=== PATIENT | male | born 1945 | race Two or more races ===

== ENCOUNTER → 2025-01-27 | Outpatient (CLI) | payer OTHER, SELFPAY ==
[2025-01-27 10:17] LABS: Basophils # (Auto) 0.1 Thou/mm3 (0.0-0.2); Basophils % (Auto) 1 % (0-2.5); Eosinophils # (Auto) 0.4 Thou/mm3 (0.0-0.5); Eosinophils % (Auto) 5 % (0-10); Hematocrit 44.9 % (41.0-53.0); Immature Granulocytes % (Auto) 0 % (0-0); Immature Granulocytes Auto 0.02 Thou/mm3 (0.00-0.00); Lymphocytes % (Auto) 27 % (10-50); Mean Corpuscular HGB Conc 33.4 g/dl (31.0-37.0); Mean Corpuscular Hemoglobin 31.2 pg (25.0-35.0); Mean Corpuscular Volume 93 fL (80-100); Monocytes # (Auto) 0.8 Thou/mm3 (0.0-0.8); Monocytes % (Auto) 10 % (0-12); Neutrophils # (Auto) 4.2 Thou/mm3 (1.8-7.7); Neutrophils % (Auto) 57 % (37-80); Nucleated Red Blood Cell % 0 /100 WBC (0); Platelet Count 220 Thou/mm3 (140-440); RDW Standard Deviation 46.8 fL (35.1-43.9); Red Blood Count 4.81 Miln/mm3 (4.50-5.90); White Blood Count 7.4 Thou/mm3 (3.8-10.6)
[2025-01-27 10:46] LABS: Alanine Aminotransferase 17 U/L (10-49); Albumin, Serum 4.2 gm/dL (3.4-4.8); Albumin/Globulin Ratio 1.8 (1.2-2.2); Alkaline Phosphatase 90 U/L (46-116); Anion Gap 6 (7-16); Aspartate Amino Transferase 16 U/L (0-34); BUN/Creatinine Ratio 17 Ratio (12-20); Bilirubin,Total 0.4 mg/dL (0.3-1.2); Blood Urea Nitrogen 17 mg/dL (9-23); Calcium 9.1 mg/dL (8.3-10.6); Calcium (Corrected) 9.1 mg/dL (8.5-10.1); Carbon Dioxide 26.6 mMol/L (20.0-31.0); Cardiac Risk Estimate 3.9 RATIO (4.0-6.7); Chloride 108 mMol/L (98-107); Cholesterol 164 mg/dL (132-200); Globulin 2.4 gm/dL (2.3-3.5); Glucose 106 mg/dL (74-106); HDL Cholesterol 42 mg/dL (40-60); LDL Cholesterol,Calculated 103 mg/dL (0-130); Osmolality,Calculated 282 (275-295); Potassium 4.3 mMol/L (3.4-5.1); Sodium 141 mMol/L (136-145); Thyroid Stimulating Hormone 1.86 uIU/mL (0.55-4.78); Total Protein 6.6 gm/dL (5.7-8.2); Triglycerides 96 mg/dL (30-150); eGFR > 60 See Note
[2025-01-27 11:13] LABS: Glucose Estimated Average 117 mg/dL (80-131); Hemoglobin A1C 5.7 % Hgb (4.8-6.0)
== END | disposition home or self-care (01) ==
LOC: COPL 09:09
PROVIDERS: PCP Family Medicine; Referring Provider Nurse Practitioner Family; Visit Provider Nurse Practitioner Family
DX: I10 Essential (primary) hypertension (principal); Z82.49 Family history of ischemic heart disease and other diseases of the circulatory system; Z86.39 Personal history of other endocrine, nutritional and metabolic disease
CPT/HCPCS: 36415; 80053; 80061; 83036; 84443; 85025

== ENCOUNTER 2025-02-27 19:40 | Emergency (ER) | payer OTHER, SELFPAY | END 2025-02-28 08:00 | disposition left against medical advice (07) | LOC: SERX 20:21 | PROVIDERS: Emergency Provider Emergency Medicine | DX: Z53.21 Procedure and treatment not carried out due to patient leaving prior to being seen by health care provider (principal) ==

== ENCOUNTER → 2025-03-11 | Outpatient (CLI) | payer OTHER, SELFPAY ==
--- NOTE | 2025-03-11 15:30 | XR_ITS ---
Examination: Carotid arterial duplex scan, ultrasound. Date and time of exam: March 11, 2025 1535 hours INDICATIONS: Severe dizziness episodes beginning one week ago Technique: Multiple sonographic images have been obtained of the carotid arteries and vertebral arteries, B-mode/grayscale imaging and Doppler spectral analysis and color flow Peak systolic and diastolic velocities have been recorded. Systolic diastolic ratios have been calculated. Findings: Right peak systolic velocities: Distal internal carotid artery peak systolic velocity is 0.9 M/sec Proximal internal carotid artery peak systolic velocity is 0.3 M/sec Carotid bifurcation peak systolic velocity is 0.8 M/sec External carotid artery peak systolic velocity is 0.5 M/sec Vertebral artery flow is antegrade. Left peak systolic velocities: Distal internal carotid artery peak systolic velocity is 0.9 M/sec Proximal internal carotid artery peak systolic velocity is 0.8 M/sec Carotid bifurcation peak systolic velocity is 0.8 M/sec External carotid artery peak systolic velocity is 1.1 M/sec Vertebral artery flow is antegrade Doppler waveform analysis demonstrates no spectral broadening Impression: Right internal carotid artery demonstrates 0-10% stenosis. Left internal carotid artery demonstrates 0-10% stenosis. Consider brain MRI MRA without contrast follow-up
== END | disposition home or self-care (01) ==
PROVIDERS: Referring Provider Internal Medicine; Visit Provider Internal Medicine
DX: R42 Dizziness and giddiness (principal)
CPT/HCPCS: 93880

== ENCOUNTER → 2025-04-30 | Outpatient (CLI) | payer OTHER, SELFPAY ==
[2025-04-30 09:21] LABS: Basophils % (Auto) 0 % (0-2.5); Eosinophils # (Auto) 0.2 Thou/mm3 (0.0-0.5); Eosinophils % (Auto) 2 % (0-10); Hematocrit 44.7 % (41.0-53.0); Hemoglobin 14.9 g/dL (13.5-16.0); Immature Granulocytes % (Auto) 0 % (0-0); Immature Granulocytes Auto 0.04 Thou/mm3 (0.00-0.00); Lymphocytes # (Auto) 1.7 Thou/mm3 (1.0-4.8); Lymphocytes % (Auto) 18 % (10-50); Mean Corpuscular HGB Conc 33.3 g/dl (31.0-37.0); Mean Corpuscular Hemoglobin 31.3 pg (25.0-35.0); Mean Corpuscular Volume 94 fL (80-100); Monocytes # (Auto) 0.7 Thou/mm3 (0.0-0.8); Monocytes % (Auto) 7 % (0-12); Neutrophils # (Auto) 6.9 Thou/mm3 (1.8-7.7); Neutrophils % (Auto) 72 % (37-80); Nucleated Red Blood Cell % 0 /100 WBC (0); Platelet Count 237 Thou/mm3 (140-440); RDW Standard Deviation 44.7 fL (35.1-43.9); Red Blood Count 4.76 Miln/mm3 (4.50-5.90); White Blood Count 9.7 Thou/mm3 (3.8-10.6)
[2025-04-30 09:43] LABS: Alanine Aminotransferase 13 U/L (10-49); Albumin, Serum 4.3 gm/dL (3.4-4.8); Alkaline Phosphatase 94 U/L (46-116); Anion Gap 3 (7-16); Aspartate Amino Transferase 16 U/L (0-34); BUN/Creatinine Ratio 12 Ratio (12-20); Bilirubin,Total 0.3 mg/dL (0.3-1.2); Blood Urea Nitrogen 14 mg/dL (9-23); Calcium 9.3 mg/dL (8.3-10.6); Calcium (Corrected) 9.3 mg/dL (8.5-10.1); Carbon Dioxide 28.7 mMol/L (20.0-31.0); Chloride 108 mMol/L (98-107); Creatinine (Component) 1.2 mg/dL (0.6-1.3); Globulin 2.2 gm/dL (2.3-3.5); Glucose 105 mg/dL (74-106); Osmolality,Calculated 279 (275-295); Potassium 5.3 mMol/L (3.4-5.1); Sodium 140 mMol/L (136-145); Total Protein 6.5 gm/dL (5.7-8.2); eGFR > 60 See Note
[2025-04-30 14:18] LABS: OBS Performed By LAB; OBS QC OK? Yes
[2025-04-30 18:52] LABS: OBS Developer Lot # 1-24-551749; Occult Blood, Stool Positive (Negative)
[2025-04-30 18:53] LABS: OBS Developer Expiration Date 123126
== END | disposition home or self-care (01) ==
LOC: COPL 08:46
PROVIDERS: PCP Family Medicine; Referring Provider Student in an Organized Health Care Education/Training Program; Visit Provider Student in an Organized Health Care Education/Training Program
DX: I10 Essential (primary) hypertension (principal); R19.7 Diarrhea, unspecified
CPT/HCPCS: 36415; 80053; 82270; 85025; 87015; 87045; 87046; 87177; 87209; 87899

== ENCOUNTER → 2025-05-12 | Outpatient (CLI) | payer OTHER, SELFPAY ==
[2025-05-12 10:36] LABS: Potassium 5.1 mMol/L (3.4-5.1)
== END | disposition home or self-care (01) ==
LOC: COPL 09:27
PROVIDERS: PCP Student in an Organized Health Care Education/Training Program; Referring Provider Student in an Organized Health Care Education/Training Program; Visit Provider Student in an Organized Health Care Education/Training Program
DX: E87.5 Hyperkalemia (principal)
CPT/HCPCS: 36415; 84132

== ENCOUNTER → 2025-05-19 | Outpatient (CLI) | payer OTHER, SELFPAY ==
[2025-05-19 07:52] LABS: Misc Send Out* See Sep Rpt
[2025-05-19 08:23] LABS: Basophils # (Auto) 0.1 Thou/mm3 (0.0-0.2); Basophils % (Auto) 1 % (0-2.5); Eosinophils # (Auto) 0.3 Thou/mm3 (0.0-0.5); Eosinophils % (Auto) 2 % (0-10); Hematocrit 41.5 % (41.0-53.0); Hemoglobin 13.9 g/dL (13.5-16.0); Immature Granulocytes Auto 0.05 Thou/mm3 (0.00-0.00); Lymphocytes # (Auto) 1.4 Thou/mm3 (1.0-4.8); Lymphocytes % (Auto) 13 % (10-50); Mean Corpuscular HGB Conc 33.5 g/dl (31.0-37.0); Mean Corpuscular Hemoglobin 31.3 pg (25.0-35.0); Mean Corpuscular Volume 94 fL (80-100); Monocytes # (Auto) 0.8 Thou/mm3 (0.0-0.8); Monocytes % (Auto) 7 % (0-12); Neutrophils # (Auto) 8.0 Thou/mm3 (1.8-7.7); Neutrophils % (Auto) 76 % (37-80); Nucleated Red Blood Cell # 0.00 Thou/mm3 (0.00-0.00); Nucleated Red Blood Cell % 0 /100 WBC (0); Platelet Count 270 Thou/mm3 (140-440); RDW Standard Deviation 45.2 fL (35.1-43.9); Red Blood Count 4.44 Miln/mm3 (4.50-5.90); White Blood Count 10.5 Thou/mm3 (3.8-10.6)
[2025-05-19 08:49] LABS: Alanine Aminotransferase 13 U/L (10-49); Albumin, Serum 4.0 gm/dL (3.4-4.8); Albumin/Globulin Ratio 1.7 (1.2-2.2); Alkaline Phosphatase 91 U/L (46-116); Anion Gap 10 (7-16); Aspartate Amino Transferase 14 U/L (0-34); BUN/Creatinine Ratio 15 Ratio (12-20); Bilirubin,Total 0.5 mg/dL (0.3-1.2); Blood Urea Nitrogen 16 mg/dL (9-23); Calcium 9.1 mg/dL (8.3-10.6); Calcium (Corrected) 9.1 mg/dL (8.5-10.1); Carbon Dioxide 26.4 mMol/L (20.0-31.0); Chloride 109 mMol/L (98-107); Creatinine (Component) 1.1 mg/dL (0.6-1.3); Globulin 2.4 gm/dL (2.3-3.5); Glucose 106 mg/dL (74-106); Osmolality,Calculated 289 (275-295); Potassium 4.6 mMol/L (3.4-5.1); Sodium 145 mMol/L (136-145); Total Protein 6.4 gm/dL (5.7-8.2); eGFR > 60 See Note
[2025-05-19 12:03] LABS: Sed Rate (ESR) 38 mm/hr (0-20)
[2025-05-26 08:06] LABS: Immunoglobulin A 146 mg/dL (70-320); hs-CRP* 17.9 mg/L; tTG Ab, IgA <1.0 U/mL
== END | disposition home or self-care (01) ==
LOC: COPL 07:34
PROVIDERS: PCP Student in an Organized Health Care Education/Training Program; Referring Provider Specialist; Visit Provider Specialist
DX: R19.7 Diarrhea, unspecified (principal)
CPT/HCPCS: 36415; 80053; 82784; 85025; 85652; 86141; 86364

== ENCOUNTER → 2025-05-20 | Outpatient (CLI) | payer OTHER, SELFPAY ==
[2025-05-26 07:44] LABS: Calprotectin, Stool* 1500 mcg/g
== END | disposition home or self-care (01) ==
LOC: SLDO 09:41
PROVIDERS: Referring Provider Specialist; Visit Provider Specialist
DX: R19.7 Diarrhea, unspecified (principal)
CPT/HCPCS: 83993

== ENCOUNTER 2025-06-16 08:00 | Day surgery (SDC) | payer OTHER, SELFPAY ==
[2025-06-16] VITALS (12 sets, daily range): BP systolic 100–131; BP diastolic 62–83; PULSE 61–73; RESP 14–19; TEMP 36.2–36.8; O2SAT 95–99; BMI 25.4
[2025-06-16] MEDS: SODIUM CHLORIDE 0.9% 500 ML 500 ML 20 ML IV ×2 (08:45→10:32)
[2025-06-16] MEDS: Ampicillin Inj 2,000 MG in SODIUM CHLORIDE 0.9% (POP) 100 ML 100 MG IV (08:45)
[2025-06-16] MEDS: GENTAMICIN INJ 40 MG/ML 20ML 80 MG IV (09:15)
[2025-06-16] MEDS: BENZOCAINE 20% (Hurricaine) SPRAY 1 DOSE TOP (10:12)
[2025-06-16] MEDS: MIDAZOLAM INJ 1 MG/ML VIAL 2 ML (ASD USE ONLY) 2 MG IVP (10:15)
[2025-06-16] MEDS: fentaNYL CIT INJ 50 mCg/ML AMP 2ML (ASD USE ONLY) IVP (10:15)
== END 2025-06-16 11:20 | disposition home or self-care (01) ==
PROVIDERS: PCP Student in an Organized Health Care Education/Training Program; Referring Provider Specialist; Visit Provider Specialist
PROC: 0DBE8ZX Excision of Large Intestine, Via Natural or Artificial Opening Endoscopic, Diagnostic (ICD-10-PCS; CPT 45380; principal; 2025-06-16 12:15)
PROC: (CPT 43239; 2025-06-16 12:15)
DX: K52.9 Noninfective gastroenteritis and colitis, unspecified (principal); K63.89 Other specified diseases of intestine; K62.89 Other specified diseases of anus and rectum; K64.9 Unspecified hemorrhoids; K29.50 Unspecified chronic gastritis without bleeding
CPT/HCPCS: 45380; J0290; J1200; J2250; J3010; J7999; A9270

== ENCOUNTER → 2025-06-23 | Outpatient (CLI) | payer OTHER, SELFPAY ==
--- NOTE | 2025-06-23 08:58 | XR_ITS ---
Examination: Lumbar spine, 5 views Technique: Lumbar spine AP, lateral, coned lateral lower lumbar spine, bilateral obliques 5 views Exam date and time: June 23, 2025 0904 hours INDICATIONS: Lower back pain beginning 3 months ago FINDINGS: Satisfactory alignment lumbar vertebral bodies No lumbar fracture Prominent lumbar spondylosis Advanced disc narrowing L5-S1 IMPRESSION: Advanced degenerative disc disease L5-S1
== END | disposition home or self-care (01) ==
PROVIDERS: PCP Student in an Organized Health Care Education/Training Program; Referring Provider Student in an Organized Health Care Education/Training Program; Visit Provider Radiology Diagnostic Radiology
DX: M51.370 Other intervertebral disc degeneration, lumbosacral region with discogenic back pain only (principal); I10 Essential (primary) hypertension
CPT/HCPCS: 72110

== ENCOUNTER 2025-06-29 20:15 | Emergency (ER) | payer OTHER, SELFPAY ==
[2025-06-29 20:15] VITALS: BMI 26.7
--- NOTE | 2025-06-29 20:18 | EKG_ITS ---
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
[2025-06-29 20:35] VITALS: BP 115/65; PULSE 71; RESP 18; TEMP 37.2; O2SAT 97
--- NOTE | 2025-06-29 20:57 | EDNOTE_ITS ---
ED Chest Pain RME/HPI General Chief Complaint: Chest Pain Stated Complaint: CHEST PAIN RADIATING TO BACK Arrival date/time: 06/29/25 20:15 RME / HPI RME / HPI narrative: Dr. Leon?s Main ED Evaluation: 80yo male with a history of HTN, s/p pacemaker presents to the ED for a chief complaint of substernal chest pain that radiates to his back x 3 days. Pain is described as sharp in nature and has been progressively worse. Patient has experienced similar symptoms in the past. He denies any shortness of breath or any other associated symptoms. Denies any history of UT. NKA. Related Data Home Medications ?Medication ?Instructions ?Recorded ?Confirmed lisinopril 10 mg tablet 10 mg PO QDAY 07/07/2206/29 trazodone 50 mg tablet 50 mg PO HS 06/16/25 5 azathioprine 50 mg tablet 50 mg PO QDAY 06/29/2506/29 folic acid 1 mg tablet 1 mg PO QDAY 06/29/25 sulfasalazine 500 mg tablet 500 mg PO BID 06/29/25 Allergies Allergy/AdvReac Type Severity Reaction Status Date / Time No Known Allergies Allergy Verified 06/29/25 20:15 Review of Systems Review of Systems Systems Reviewed: All systems reviewed, normal except as documented Past Medical History Past Medical History NEUROLOGIC: Negative Neurological Disorders or Seizures CARDIAC: Positive Cardiac Disorders and Hypertension (TAKES MED); Negative Congestive Heart Failure, Edema, Cellulitis or Varicose Veins RESPIRATORY: Negative Chronic Obstructive Pulmonary Disease (COPD), Tuberculosis or Sleep Apnea GASTROINTESTINAL: Positive Gastrointestinal Disorders (diarrhea); Negative Hepatitis GENITOURINARY: Negative Genitourinary Disorders or Renal Disease MUSCULOSKELETAL: Negative Musculoskeletal Disorders ENT: Positive Cataracts (RIGHT) ENDOCRINE: Negative Endocrine Disorders (PREDIABETES), Diabetes Mellitus Type 1 or Diabetes Mellitus Type 2 HEMATOLOGIC: Negative Blood Disorders OTHER HISTORY: Positive Shingles (2019), Chicken Pox, Measles and Mumps; Negative Hospitalization, Autoimmune Disease, Falls, Blood Transfusions, Blood Transfusion Reaction, Anesthesia Reactions, Chemotherapy, Radiation Therapy or Cancer Family History FAMILY HISTORY: Positive Family Gastrointestinal Problems (FATHER (PANCREAS)), Family Cancer (FATHER (PANCREAS)) and Family Surgery (MOTHER,SISTER); Negative Family Psychiatric Problems, Family Respiratory Disorders, Family Cardiac Disorders or Family Anesthesia Reaction Surgical History SURGICAL: Positive Pacemaker (LEFT CHEST) Social History SMOKING STATUS: Current every day smoker ED Exam Narrative Physical exam: Generally patient is alert and in no obvious distress. Chest shows left upper chest pacemaker to be in place without tenderness or overlying erythema, heart regular rate and rhythm, lungs auscultation equal bilaterally, abdomen soft bowel sounds present send nontender, upper extremities show equal radial and ulnar pulses bilaterally, neurologic exam no focal or sensory deficits current nerves II through gross intact Course Course Course Narrative: CXR is ordered for determining the etiology of chest pain. Quality Measures none Orders Category Date Time Status EKG (ED ONLY) *Do not use* NOW Care 06/29/25 20:18 Completed EKG (ED Only) Stat Exams 06/29/25 20:18 Draft XR chest 1V portable Stat Exams 06/29/25 21:03 Taken CBC Stat Lab 06/29/25 21:10 Completed CMP [Comprehensive Metabolic Panel] Stat Lab 06/29/25 21:10 Completed Troponin I Stat Lab 06/29/25 21:10 Completed Vital Signs Vital signs: Vital Signs Temperature 98.9 F 06/29/25 20:35 Pulse Rate 71 06/29/25 20:35 Respiratory Rate 18 06/29/25 20:35 Blood Pressure 115/65 06/29/25 20:35 Pulse Oximetry (%) 97 06/29/25 20:35 Oxygen Delivery Method Room Air 06/29/25 20:35 Chest Pain MDM Narrative MDM Narrative:: Scribe Attestation: 06/29/25 - Janeen Elizabeth am scribing for and in the presence of Dr. Leon. Chest pains been going on for 3 days. Chest x-ray shows little change from previous chest x-ray done in 2021. I do not believe this patient have a dissecting aortic aneurysm. Troponin is not elevated despite the chest pain going on for 3 days. EKG is nonischemic. Patient is stable for discharge. He has had this pain in the past multiple times. 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 Return to ER as needed or condition worsen such as increasing severity of pain. Patient data External records reviewed:: [facility] previous records (Per chart review, patient has no previous ED visits to this facility.) Clinical information provided by:: patient Social determinants that could affect healthcare access:: none Patient has the following chronic illnesses:: sick sinus syndrome s/p pacemaker, HTN How is presenting disease/condition affected by chronic disease/condition?: uneffected by Evaluation data The following diagnostics were reviewed and interpreted by me:: lab results, radiology exam(s) and EKG tracing(s) Lab and/or radiology exams considered but not ordered:: none Interpretation Summary: See MDM. Medications / Prescriptions Medications or Prescriptions considered but not ordered:: none Medication administrations:: none Consultations Consultation(s) initiated? (list below): No Diagnosis Chest Pain Differential Diagnosis: atypical chest pain, st elevation myocardial infarction, costochondritis, chest pain and other (NSTEMI, musculoskeletal pain) Most likely diagnosis given after review of the tests above:: see clinical impression below Admission Indicated Admission indicated?: not indicated Explain why admission is indicated or not indicated:: With no condition needing emergent intervention, there was no indication for admission. Admission Request Was there a request for admission?: No Disposition Plan Disposition Plan: Discharge Discharge Attestation Discharge Attestation: The patient and all family members were given an opportunity to ask questions and understood the discharge instructions. Discharge instructions specifically effects, indications for sooner follow up or return to the emergency department, and the expected course of current diagnosis. Patient condition: Stable Discharge Plan Plan Patient Disposition: HOME (Self Care) Prescriptions/Referrals Prescriptions/Med Rec: No Action lisinopril 10 mg Tablet 10 mg PO QDAY trazodone 50 mg tablet 50 mg PO HS Patient Comments: TAKE 1 TABLET BY MOUTH ONCE DAILY AT BEDTIME NEEDED azathioprine 50 mg tablet 50 mg PO QDAY sulfasalazine 500 mg tablet 500 mg PO BID folic acid 1 mg tablet 1 mg PO QDAY Referrals: Vineet Rosa PA-C [Primary Care Provider] - In 1 week Problem List Clinical Impression: Chest pain Patient/Caregiver Discharge Instructions Education Materials: ED Chest Pain, Uncertain Cause Additional Instructions: Continue current medications. Follow-up with your heart doctor for further treatment and evaluation. Return to ER as needed or if condition worsens. Print Language: Malaysian Stand Alone Forms: Paulette Award Info., Patient Portal Info Letter
--- NOTE | 2025-06-29 21:03 | XR_ITS ---
Examination: AP chest single view TECHNIQUE: AP portable semiupright chest single view Date and time: June 29, 2025, 2108 hours, comparison 07/12/2022 INDICATION: Chest pain radiating to the back today. FINDINGS: Minimal prominence left ventricle Ectatic thoracic aorta. Transvenous dual-chamber bipolar cardiac lead satisfactory position. No pneumonia or pulmonary edema. IMPRESSION: No pneumonia or pulmonary edema.
[2025-06-29 21:15] VITALS: BP 132/77; PULSE 65; RESP 16; TEMP 37; O2SAT 98
[2025-06-29 21:15] LABS: Basophils # (Auto) 0.0 Thou/mm3 (0.0-0.2); Basophils % (Auto) 0 % (0-2.5); Eosinophils # (Auto) 0.1 Thou/mm3 (0.0-0.5); Eosinophils % (Auto) 1 % (0-10); Hematocrit 36.5 % (41.0-53.0); Hemoglobin 12.0 g/dL (13.5-16.0); Immature Granulocytes Auto 0.06 Thou/mm3 (0.00-0.00); Lymphocytes # (Auto) 1.7 Thou/mm3 (1.0-4.8); Lymphocytes % (Auto) 15 % (10-50); Mean Corpuscular HGB Conc 32.9 g/dl (31.0-37.0); Mean Corpuscular Hemoglobin 30.7 pg (25.0-35.0); Mean Corpuscular Volume 93 fL (80-100); Monocytes # (Auto) 1.5 Thou/mm3 (0.0-0.8); Monocytes % (Auto) 13 % (0-12); Neutrophils # (Auto) 8.2 Thou/mm3 (1.8-7.7); Neutrophils % (Auto) 70 % (37-80); Nucleated Red Blood Cell # 0.00 Thou/mm3 (0.00-0.00); Nucleated Red Blood Cell % 0 /100 WBC (0); Platelet Count 214 Thou/mm3 (140-440); RDW Standard Deviation 46.0 fL (35.1-43.9); Red Blood Count 3.91 Miln/mm3 (4.50-5.90); White Blood Count 11.7 Thou/mm3 (3.8-10.6)
[2025-06-29 21:45] LABS: Alanine Aminotransferase 9 U/L (10-49); Albumin, Serum 3.9 gm/dL (3.4-4.8); Albumin/Globulin Ratio 1.8 (1.2-2.2); Alkaline Phosphatase 98 U/L (46-116); Anion Gap 8 (7-16); Aspartate Amino Transferase 11 U/L (0-34); BUN/Creatinine Ratio 12 Ratio (12-20); Bilirubin,Total 0.5 mg/dL (0.3-1.2); Blood Urea Nitrogen 11 mg/dL (9-23); Calcium 9.6 mg/dL (8.3-10.6); Calcium (Corrected) 9.7 mg/dL (8.5-10.1); Carbon Dioxide 24.8 mMol/L (20.0-31.0); Chloride 104 mMol/L (98-107); Creatinine (Component) 0.9 mg/dL (0.6-1.3); Estimated Creatinine Clearance 63.3 mL/min (>60); Globulin 2.2 gm/dL (2.3-3.5); Glucose 143 mg/dL (74-106); Osmolality,Calculated 275 (275-295); Potassium 3.9 mMol/L (3.4-5.1); Sodium 137 mMol/L (136-145); Total Protein 6.1 gm/dL (5.7-8.2); Troponin I < 0.002 ng/mL (0.0-0.045); eGFR > 60 See Note
[2025-06-29 22:21] VITALS: BP 129/69; PULSE 68; RESP 18; TEMP 36.8; O2SAT 98
[2025-06-29] MEDS: ACETAMINOPHEN 325 MG TABLET 650 MG PO (22:21)
== END 2025-06-29 22:24 | disposition home or self-care (01) ==
PROVIDERS: Emergency Provider Emergency Medicine; PCP Student in an Organized Health Care Education/Training Program
DX: R07.2 Precordial pain (principal); I10 Essential (primary) hypertension; Z95.0 Presence of cardiac pacemaker
CPT/HCPCS: 36415; 71045; 80053; 84484; 85025; 93005; 99283; A9270

== ENCOUNTER 2025-07-05 01:50 | Inpatient (IN) | payer OTHER, MEDICARE, SELFPAY ==
[2025-07-05] VITALS (7 sets, daily range): BP systolic 124–141; BP diastolic 62–82; PULSE 63–75; RESP 14–94; TEMP 36.7–36.9; O2SAT 95–96; BMI 27.0
--- NOTE | 2025-07-05 | XR_ITS ---
MRI abdomen, without contrast. MRCP Date and time of exam: July 05, 2025, 12:50 PM. Indications: Abdominal pain beginning 8 days ago, gallbladder sonogram July 05, 2025 0401 hrs. Suspicious for cholecystitis Technique: Multiple axial and coronal images of the abdomen have been obtained with the Siemens 1.5T MRI scanner. Images obtained included T1 weighted transverse images, T2-weighted transverse images, T2-weighted transverse images fat-suppressed, T2 weighted haste fat suppressed transverse images, T1 weighted images, in and out of phase images, T2-weighted coronal images, breath hold, T2 weighted haze coronal images as well as T2 weighted coronal thick slab images, MRCP. Findings: No focal liver lesions Cholelithiasis, marked edema and wall thickening involving the gallbladder Common hepatic common bile duct are not enlarged, no common hepatic or common bile duct stones Edema around the pancreas. No pancreatic pseudocyst Spleen is not enlarged. No bowel obstruction Impression: Acute calculus cholecystitis. No common hepatic or common bile duct stones Acute pancreatitis, no pseudocyst
--- NOTE | 2025-07-05 02:19 | XR_ITS ---
Examination: CT abdomen with intravenous contrast CT pelvis with intravenous contrast 2-D coronal reconstructions 2-D sagittal reconstructions Date and time of exam:June 08, 2025, 0420 hrs. Indications: Abdominal pain and constipation beginning today.. CTDI: vol (mGy) 13.28. DLP: (mGycm) 617. Technique: Multiple axial sections of the abdomen and pelvis have been obtained. 64 slice high-resolution scanner used. 3 mm axial sections have been obtained, post intravenous injection 60 cc [id number]. 2-D sagittal, coronal reconstructions obtained. Low dose protocols were performed. One or more of the following dose reduction techniques were used; automated exposure control, adjustment of the mA and/or KV according to patient size, use of iterative reconstruction technique. Findings: Opacity left base consistent with pneumonia Mild enlargement cardiac contour. Diffuse fatty infiltration throughout the liver. Cholelithiasis, gallbladder wall appears thickened. Diffuse edema surrounding the pancreas. Perinephric stranding. Normal appendix. Colonic diverticulosis. No diverticulitis. Bladder intact. Transverse prostate dimension 5.1 cm Impression: Early left base pneumonia. Cholelithiasis, suspicious for acute cholecystitis, consider HIDA scan or MRCP follow-up. Acute pancreatitis, no pseudocyst
--- NOTE | 2025-07-05 02:19 | PD.EDRME ---
Rapid Medical Screening Exam RME Arrival date/time: 07/05/25 01:50 80M with history of HTN and possible IBD presents to ED with ab pain and no BM since patient had recent EGD and colonoscopy with Dr. Junior. Chief Complaint: Abdominal Pain Vital signs: Vital Signs Temperature 98.4 F 07/05/25 02:13 Pulse Rate 67 07/05/25 02:13 Respiratory Rate 18 07/05/25 02:13 Blood Pressure 124/68 07/05/25 02:13 Pulse Oximetry (%) 96 07/05/25 02:13 Oxygen Delivery Method Room Air 07/05/25 02:13
[2025-07-05 02:39] LABS: Collection Type, Urine Clean Catch
[2025-07-05 02:41] LABS: Basophils # (Auto) 0.0 Thou/mm3 (0.0-0.2); Basophils % (Auto) 0 % (0-2.5); Eosinophils # (Auto) 0.4 Thou/mm3 (0.0-0.5); Eosinophils % (Auto) 2 % (0-10); Hematocrit 38.1 % (41.0-53.0); Hemoglobin 12.3 g/dL (13.5-16.0); Immature Granulocytes Auto 0.08 Thou/mm3 (0.00-0.00); Lymphocytes # (Auto) 1.6 Thou/mm3 (1.0-4.8); Lymphocytes % (Auto) 11 % (10-50); Mean Corpuscular HGB Conc 32.3 g/dl (31.0-37.0); Mean Corpuscular Hemoglobin 30.8 pg (25.0-35.0); Mean Corpuscular Volume 96 fL (80-100); Monocytes # (Auto) 1.1 Thou/mm3 (0.0-0.8); Monocytes % (Auto) 8 % (0-12); Neutrophils # (Auto) 11.8 Thou/mm3 (1.8-7.7); Neutrophils % (Auto) 78 % (37-80); Nucleated Red Blood Cell # 0.00 Thou/mm3 (0.00-0.00); Nucleated Red Blood Cell % 0 /100 WBC (0); Platelet Count 214 Thou/mm3 (140-440); RDW Standard Deviation 46.4 fL (35.1-43.9); Red Blood Count 3.99 Miln/mm3 (4.50-5.90); White Blood Count 15.0 Thou/mm3 (3.8-10.6)
[2025-07-05 02:49] LABS: Amorphous Crystals,Urine Present (Absent); Bacteria,Urine Rare; Bilirubin,Urine Negative (Negative); Blood,Urine Negative (Negative); Clarity,Urine Clear (Clear/Hazy); Color,Urine Yellow (Lt Yel-Yel); Glucose, Urine Negative (Negative); Ketones,Urine Negative (Negative); Leukocyte Esterase,Urine Positive (Negative); Nitrite,Urine Negative (Negative); PH,Urine 6.5 (5.0-7.0); Protein,Urine Negative (Neg - Trace); RBC,Urine 2 /hpf (0-3); Specific Gravity,Urine 1.010 (1.001-1.035); Squamous Epithelial Cell,Urine < 1 /hpf (0-5); Urobilinogen,Urine Negative mg/dL (0.0-1.0); WBC,Urine 11 /hpf (0-5)
[2025-07-05 02:50] LABS: Culture Indicated,Urine Yes
[2025-07-05 03:14] LABS: Alanine Aminotransferase 13 U/L (10-49); Albumin, Serum 4.1 gm/dL (3.4-4.8); Albumin/Globulin Ratio 1.6 (1.2-2.2); Alkaline Phosphatase 171 U/L (46-116); Anion Gap 10 (7-16); Aspartate Amino Transferase 12 U/L (0-34); BUN/Creatinine Ratio 11 Ratio (12-20); Bilirubin,Total 0.6 mg/dL (0.3-1.2); Blood Urea Nitrogen 11 mg/dL (9-23); Calcium 10.0 mg/dL (8.3-10.6); Calcium (Corrected) 10.0 mg/dL (8.5-10.1); Carbon Dioxide 25.7 mMol/L (20.0-31.0); Chloride 101 mMol/L (98-107); Creatinine (Component) 1.0 mg/dL (0.6-1.3); Estimated Creatinine Clearance 57.0 mL/min (>60); Globulin 2.5 gm/dL (2.3-3.5); Glucose 159 mg/dL (74-106); Osmolality,Calculated 276 (275-295); Potassium 3.9 mMol/L (3.4-5.1); Sodium 137 mMol/L (136-145); Total Protein 6.6 gm/dL (5.7-8.2); eGFR > 60 See Note
[2025-07-05 03:15] LABS: Lipase 1411 U/L (12-53)
--- NOTE | 2025-07-05 03:17 | XR_ITS ---
Examination: Abdomen sonogram, Limited Date and time of exam: July 06, 2025, 0401 hrs. Indications: Abdominal pain beginning 8 days ago. Technique: Real-time nguyen scale transabdominal sonographic images of the upper abdomen obtained. Findings: Cholelithiasis. Gallbladder wall appears thickened 0.4 cm Common bile duct 0.4 cm no stones Enlarged pancreas 4.1 cm, pancreatitis included in the differential Liver 17.7 cm fatty infiltration. Normal hepatopedal portal venous flow. Patent IVC. Impression: Cholelithiasis, suspicious for acute cholecystitis, recommend HIDA scan or MRCP follow-up Enlarged pancreas, consider acute pancreatitis
[2025-07-05 03:33] LABS: Alcohol, Blood Medical < 3.0 mg/dL (0-10.0); Triglycerides 91 mg/dL (30-150)
[2025-07-05] MEDS: MORPHINE SULF INJ 10 MG/ML VIAL 5 MG IVP (03:47)
[2025-07-05] MEDS: ONDANSETRON INJ 2 MG/ML INJ 2 ML 4 MG IVP ×2 (03:47→08:14)
--- NOTE | 2025-07-05 04:55 | PD.EDABDPN ---
ED Abdominal Pain RME/HPI General Chief Complaint: Abdominal Pain Stated complaint: STOMACH PAIN Time seen by provider: 07/05/25 04:43 Arrival date/time: 07/05/25 01:50 RME / HPI RME / HPI narrative: 07/05/25 01:50 80M with history of HTN and possible IBD presents to ED with ab pain and no BM since patient had recent EGD and colonoscopy with Dr. Junior. DR. MYERS MAIN ED EVALUATION: 80 y/o male with Hx of HTN presents to ED c/o diffused abdominal pain x 10 days and constipation x 4 days. Denies alcohol use. Patient underwent EGD and colonoscopy approximately 3 weeks ago performed by Dr. Junior. No other concerns or complaints expressed at this time. Related Data Home Medications ?Medication ?Instructions ?Recorded ?Confirmed lisinopril 10 mg tablet 10 mg PO QDAY 07/07/22 06/29/25 trazodone 50 mg tablet 50 mg PO HS 06/16/25 06/29/25 azathioprine 50 mg tablet 50 mg PO QDAY 06/29/25 06/29/25 folic acid 1 mg tablet 1 mg PO QDAY 06/29/25 06/29/25 sulfasalazine 500 mg tablet 500 mg PO BID 06/29/25 06/29/25 Allergies Allergy/AdvReac Type Severity Reaction Status Date / Time No Known Allergies Allergy Verified 06/29/25 20:15 Review of Systems Review of Systems Systems Reviewed: All systems reviewed, normal except as documented Past Medical History Past Medical History CARDIAC: Positive Cardiac Disorders and Hypertension GASTROINTESTINAL: Positive Gastrointestinal Disorders ENT: Positive Cataracts OTHER HISTORY: Positive Shingles, Chicken Pox, Measles and Mumps Family History FAMILY HISTORY: Positive Family Gastrointestinal Problems, Family Cancer and Family Surgery Surgical History SURGICAL: Positive Pacemaker ED Exam Narrative Physical exam: Generally patient is alert and in no obvious distress, heart regular rate and rhythm, lungs clear to auscultation equal bilaterally, abdomen soft bowel sounds present nondistended mild epigastric abdominal tenderness rebound. No obvious right upper quadrant abdominal tenderness or Sanchez sign., Skin is cool pale and dry, extremities show no edema, neurologic exam shows Jeff Coma Scale of 15 without focal motor deficits. Course Quality Measures none Orders Category Date Time Status CT Screening NOW Care 07/05/25 02:19 Active Insert IV NOW Care 07/05/25 02:19 Active MRI Screening NOW Care 07/05/25 05:[address] abdomen pelvis w con Stat Exams 07/05/25 02:19 Taken MR MRCP Stat Exams 07/05/25 Ordered US gall bladder Stat Exams 07/05/25 03:17 Taken Alcohol, Blood Medical Stat Lab 07/05/25 02:34 Completed CBC Stat Lab 07/05/25 02:34 Completed CMP [Comprehensive Metabolic Panel] Stat Lab 07/05/25 02:34 Completed Lipase Stat Lab 07/05/25 02:34 Completed Triglycerides Stat Lab 07/05/25 02:34 Completed Urinalysis, C/S if Indicated Stat Lab 07/05/25 02:30 Completed Urine Culture Stat Lab 07/05/25 02:30 Received Morphine Inj Med 07/05/25 05:29 Discontinued 4 mg IVP X1 ONE Morphine Inj Med 07/05/25 03:17 Discontinued 5 mg IVP X1 ONE Ondansetron Inj [Zofran Inj] Med 07/05/25 03:17 Discontinued 4 mg IVP X1 ONE cefTRIAXone/D5w 1gm IV premix [Rocephin/D5w 1gm IV Med 07/05/25 05:16 Active premix] 1 gm in 50 ml IV X1 metroNIDAZOLE/NS 500 MG IVPB [Flagyl 500 mg IV] Med 07/05/25 05:18 Active 500 mg in 100 ml IV X1 Vital Signs Vital signs: Vital Signs Temperature 98.4 F 07/05/25 02:13 Pulse Rate 67 07/05/25 02:13 Respiratory Rate 18 07/05/25 02:13 Blood Pressure 124/68 07/05/25 02:13 Pulse Oximetry (%) 96 07/05/25 02:13 Oxygen Delivery Method Room Air 07/05/25 02:13 Abdominal Pain MDM MDM Narrative MDM Narrative:: Scribe Attestation: IAura am scribing for and in the presence of Dr. Myers. Provider Notation: Although this document has been carefully reviewed, there may still be some phonetic and other typographical errors. These errors are purely grammatical due to imperfections in the software program and should not be construed in any way to? compromise the substance of the patient's medical care during this visit. Labs showed a white count of 15,000 with an elevated lipase and slightly elevated alkaline phosphatase. Gallbladder ultrasound showed stones with a normal common bile duct but with wall thickening. Patient was given Rocephin 1 g IV and Flagyl 500 mg IV. I discussed this case with the patient's GI physician, Dr. Junior who wanted an MRCP to be ordered. This was ordered. I will sign this case out to Dr. Woodson pending the results of the MRCP which will guide disposition. Patient received morphine 4 mg IV x [address] Junior did do an EGD and colonoscopy in this patient 19 days ago with the findings of esophagitis and possible ulcerative colitis. Patient has also been complaining of decreased bowel movements over the course of the last 2 to 3 weeks. Patient data External records reviewed:: [facility] previous records (Reviewed prior ED records from 06/29/25. Patient was seen for Chest pain.) Clinical information provided by:: patient Social determinants that could affect healthcare access:: none Patient has the following chronic illnesses:: Hypertension, Cataracts How is presenting disease/condition affected by chronic disease/condition?: exacerbated by Evaluation data The following diagnostics were reviewed and interpreted by me:: lab results and radiology exam(s) Lab and/or radiology exams considered but not ordered:: None Interpretation Summary: RADIOLOGY Abdomen/Pelvis CT: Pending official radiology report. Gall Bladder US: Pending official radiology report. Medications / Prescriptions Medications or Prescriptions considered but not ordered:: None Medication administrations:: Medication Administration History Ceftriaxone Sodium/Dextrose (Rocephin/D5w 1gm Iv Premix) 1 gm in 50 mls @ 100 mls/hr IV X1 ONE Stop: 07/05/25 05:45 Last Admin: 07/05/25 05:27 Dose: 100 mls/hr Documented By: DT Metronidazole (Flagyl 500 Mg Iv) 500 mg in 100 mls @ 100 mls/hr IV X1 ONE Stop: 07/05/25 06:17 Discontinued Medications Morphine Sulfate (Morphine Sulf Inj 10 Mg/Ml Vial) 5 mg IVP X1 ONE Stop: 07/05/25 03:18 Last Admin: 07/05/25 03:47 Dose: 5 mg Documented By: PAGE Morphine Sulfate (Morphine Sulf Inj 10 Mg/Ml Vial) 4 mg IVP X1 ONE Stop: 07/05/25 05:30 Ondansetron HCl (Ondansetron Inj 2 Mg/Ml Inj 2 Ml) 4 mg IVP X1 ONE; Protocol Stop: 07/05/25 03:18 Last Admin: 07/05/25 03:47 Dose: 4 mg Documented By: PAGE See above if any. Consultations Consultation(s) initiated? (list below): Yes Consultation #1 (Physician, Specialty, Details): Dr. Junior made aware of the patient?s HPI, PMHx, lab and/or radiology results. Discussed treatment plan. Time: 05:10 Diagnosis Differential diagnosis abdominal pain: abdominal pain, acute appendicitis, calculus of kidney, constipation, diverticulitis, gastroenteritis, pancreatitis and small bowel obstruction Most likely diagnosis given after review of the tests above:: None Admission Indicated Admission indicated?: not indicated Explain why admission is indicated or not indicated:: Pending MRCP. Admission Request Was there a request for admission?: No Disposition Plan Disposition Plan: other (specify) (Signed out to Dr. Woodson at 6 AM.) Discharge Plan Prescriptions/Referrals Prescriptions/Med Rec: No Action lisinopril 10 mg Tablet 10 mg PO QDAY trazodone 50 mg tablet 50 mg PO HS Patient Comments: TAKE 1 TABLET BY MOUTH ONCE DAILY AT BEDTIME NEEDED azathioprine 50 mg tablet 50 mg PO QDAY sulfasalazine 500 mg tablet 500 mg PO BID folic acid 1 mg tablet 1 mg PO QDAY Problem List Clinical Impression: Cholelithiasis, Constipation, Elevated lipase Patient/Caregiver Discharge Instructions Print Language: Japanese
--- NOTE | 2025-07-05 05:04 | PRELIM_ITS ---
Gallbladder ultrasound with Doppler and wave Doppler spectral analysis. July 05, 2025 0401 hours Clinical history: Pancreatitis Comparison: None. Findings: The visualized liver is heterogenous and demonstrates hyperechoic. Hepatomegaly. Gallstones. Gallbladder wall thickening. No pericholecystic fluid is identified. The common duct is normal in caliber at 3.7 mm. No free fluid is demonstrated on the submitted images. The portal vein is patent with hepatopetal flow normal with Doppler spectral analysis. The hepatic veins are patent with normal with Doppler spectral analysis. The IVC is patent with normal wave Doppler spectral analysis. Enlarged pancreatic head and body. Impression: Gallstones and gallbladder wall thickening, highly suspicious of acute cholecystitis. Hepatomegaly associated with liver steatosis, suspicious for steatohepatitis. Possible cirrhosis. Enlarged pancreatic head and body. Further evaluation is recommended. Report Electronically Signed By: Dada Henriquez 07/05/2025 5:03:23 AM [EST]
[2025-07-05] MEDS: cefTRIAXone/D5w 1gm IV premix 1 GM/50 ML BAG IV (05:27)
[2025-07-05] MEDS: MORPHINE SULF INJ 10 MG/ML VIAL 4 MG IVP ×2 (05:37→08:13)
--- NOTE | 2025-07-05 05:37 | PRELIM_ITS ---
CT scan of the abdomen and pelvis with intravenous contrast (axial sections with sagittal and coronal reformats) July 05, 2025 0420 hours Clinical History: Abdominal pain, constipation. Comparison: None. Findings: Mild bilateral lung consolidations, atelectasis versus pneumonia. The liver, spleen, kidneys and adrenals are unremarkable. Peripancreatic fat stranding. No collections. No pancreatic duct dilation. Gallstones. Gallbladder wall thickening associated with peripheral edema. No evidence of bowel obstruction. The appendix is within normal limits. There is no mesenteric or retroperitoneal adenopathy. The urinary bladder is unremarkable. There is no free fluid or free air. Degenerative changes of the imaged portions of the spine. Chronic multilevel disc disease. No acute fractures. Vascular calcifications. Impression: 1. Acute pancreatitis. 2. Probable acute cholecystitis. 3. Mild bilateral lung consolidations, atelectasis versus pneumonia. Report Electronically Signed By: Dada Henriquez 07/05/2025 5:36:13 AM [EST]
[2025-07-05] MEDS: metroNIDAZOLE/NS 500 MG IVPB 500 MG/100 ML BAG 100 MG IV (05:42)
--- NOTE | 2025-07-05 06:59 | PD.EDADDENDU ---
Emergency Room Addendum Addendum Narrative: Care assumed from Dr Leon . Past medical, surgical, social and family history reviewed. Vitals and home medications reviewed. Results and treatment plan discussed. I will assume the care of the patient at this time and will follow the patient, pending psychiatric placement. Please refer to the emergency department record for history and examination from initial visit. Review of the patient's record shows on CT she has an early left pneumonia, pancreatitis. She is pending an MRCP. White count is 15 hemoglobin 12.3 and lipase was 1411. We will repeat her lipase. Patient will be given IV fluids. Patient remained stable while under my care.
[2025-07-05] MEDS: DOXYCYCLINE INJ 100 MG in SODIUM CHLORIDE 0.9% (POP) 100 ML IV (07:14)
[2025-07-05] MEDS: SODIUM CHLORIDE 0.9% 1000 ML 1,000 ML 999 ML IV (07:15)
[2025-07-05 09:27] LABS: Lipase 1067 U/L (12-53)
[2025-07-05] MEDS: PIPER/TAZO 3.375 GM PREMIX 3.375 GM/50 ML BAG IV (15:36)
--- NOTE | 2025-07-05 16:56 | ESHP_ITS ---
<Statement entered by Koby Mendez MD - 07/05/25 17:39> I attest that I was physically present for the evaluation, physical examination, lab and imaging review of the patient with the residents. I discussed the case with the residents and agree with the findings and plans of care as documented below. After examination of the patient and review of the clinical data I feel that this patient needs admission to the hospital for further treatment/evaluation. Patient is an 80 years old male with past medical history of hypertension, status post pacemaker placement for symptomatic bradycardia, recent H. pylori infection and inflammatory bowel disease who presented to the ED with complaint of abdominal pain and constipation. Patient has been having constipation for last 4 days and started having abdominal pain for last 3 days. He has abdominal pain became worse today and he decided to visit the ED. Denies any fever, chills, shortness of breath, nausea, vomiting, hematuria, hematemesis or hematochezia. He does endorse dysuria. Patient had recently undergone EGD and colonoscopy with Gastroenterology. He has been on sulfasalazine and azathioprine for his IBD. In the ED, vitals were within normal limits, saturating well on room air. Lab results show WBC of 15.0, hemoglobin 12.3, ALP 171, lipase 1411. Gallbladder ultrasound was done, showed cholelithiasis and suspicion for acute cholecystitis along with enlarged pancreatitis. CT abdomen/pelvis showed early left base pneumonia, cholelithiasis, suspicion for cholecystitis and acute pancreatitis. Patient underwent MRCP which showed acute calculus cholecystitis and acute pancreatitis without pseudocyst. It also did not show any CBD dilation or stones. At bedside, patient has epigastric right upper quadrant tenderness, negative Sanchez sign. We will admit the patient for management of acute pancreatitis, acute cholecystitis, UTI and pneumonia. Patient started on metronidazole, ciprofloxacin, tetracycline to cover H. pylori, UTI, pneumonia and cholecystitis. Received 1 L fluid bolus in the ED, started on IV hydration, 1.5 mL/kg. Started on clear liquid diet, we will advance if patient tolerates. General surgery was contacted by ED, and will follow the patient with us. Will also resume his medication for IBD, hypertension. Cultures have been ordered. Koby Mendez MD <Statement entered by Greg Novoa MD - 07/05/25 17:15> Patient was examined and case was reviewed with team including attending physician. Note reviewed, I agree with most of its contents and agree with the patient's care as documented by Dr. Varghese 88-year-old male with past medical history of hypertension, history of symptomatic bradycardia status post pacemaker, recent diagnosis of H. pylori and IBD who presented to the ED due to 3 days of abdominal pain. Patient states that he is having abdominal pain from the right side radiating to the left mostly in the epigastric region that suddenly became worse today around 1 in the morning. Patient also endorses that he has not had a bowel movement since around 4 days ago. In the ED patient was found to have acute cholecystitis and acute pancreatitis likely gallstone pancreatitis. Patient will be admitted and started on IV fluids, antibiotic therapy for cholecystitis and H. pylori as he has an active H.Pylori infection at this time. Will continue patient's IBD medications start the patient on clear liquid diet advance as tolerated. General surgery was also consulted who will evaluate the patient. Case discussed with my attending Dr. Vanessa Novoa MD PGY-2 Disclaimer: Despite multiple revisions, due to the dictation software being used, the document bellow may not be free of grammatical errors including phonetic/typographic errors. However, this does not deter from our commitment to providing health care in the patient's best interest in mind. Documentation for date of: 07/05/25 HPI History of Present Illness Chief complaint: Abdominal pain History of present illness: This is a 80 year old male with past medical history of HTN, s/p pacemaker for symptomatic bradycardia, recently diagnosed with H. Pylory infection and IBD who presents for evaluation of generalized abdominal pain x3 days and constipation x4 days. Patient states that his abdominal pain worsened today which prompted his ED visit. Patient denies nausea, vomiting, chest pain, subjective fever, shortness of breath, hematochezia or hematuria. Patient reports associated flatulence, weakness, and dyruia. Of note, patient underwent EGD and colonoscopy with Dr. Junior a few weeks ago due to positive stool occult test. EGD biopsy revealed H. Pylori infection; patient was prescribed with doxycycline and flagyl but has not started the therapy yet. In regards to his IBD, he was started on sulfasalazine and azathioprine since 1 month ago. ED course: bolus IVF, rocephin and flagyl PMH: HTN, s/p pacemaker for symptomatic bradycardia, recently diagnosed IBD and H. Pylori infection PSH: cataract surgery Allergies: NKDA SH: Quit smoking 1 month ago, drinks alcohol socially, denies drug use Code status: Full code Review of Systems Review of Systems Systems Reviewed: All systems reviewed, normal except as documented Exam Vital Signs Temp Pulse Resp BP Pulse Ox O2 Del Method 98.0 F 70 16 126/71 95 Room Air 07/05/25 16:27 07/05/25 16:27 07/05/25 16:27 07/05/25 16:27 07/05/25 16:27 07/05/25 16:27 Narrative Exam General: 80 year-old appearing male in no acute distress, good hygiene, Faroese speaking HEENT: NCAT, moist oral mucosa, external ear and nose without deformities Neck: No thyromegaly, trachea midline CV: RRR with S1 and S2, no murmurs or gallops Resp: CTAB, no wheezing, rhonchi, in no respiratory distress Ext: no pretibial edema Abdomen: soft nondistended with discomfort to palpation in RUQ and epigastric region without any rigidity or peritinic signs : Suprapubic tenderness noted Psych: alert and oriented x4. good affect Results: Labs 07/05/25 02:34 07/05/25 02:34 Labs: Short CBC 07/05/25 Range/Units 02:34 WBC 15.0 H (3.8-10.6) Thou/mm3 Hgb 12.3 L (13.5-16.0) g/dL Hct 38.1 L (41.0-53.0) % Plt Count 214 (140-440) Thou/mm3 BMP 07/05/25 02:34 Sodium 137 Potassium 3.9 Chloride 101 Carbon Dioxide 25.7 BUN 11 Creatinine 1.0 Glucose 159 H Calcium 10.0 Liver Function 07/05/25 Range/Units 02:34 Total Bilirubin 0.6 (0.3-1.2) mg/dL AST 12 (0-34) U/L ALT 13 (10-49) U/L Alkaline Phosphatase 171 H (46-116) U/L Albumin 4.1 (3.4-4.8) gm/dL Urine 07/05/25 Range/Units 02:30 Urine Color Yellow (Lt Yel-Yel) Urine Clarity Clear (Clear/Hazy) Urine pH 6.5 (5.0-7.0) Ur Specific [place] 1.010 (1.001-1.035) Urine Protein Negative (Neg - Trace) Urine Glucose (UA) Negative (Negative) Quality Measures Quality Measures none Advance care planning discussed with:: patient Medications Home Medications and Allergies Home Medications ?Medication ?Instructions ?Recorded ?Confirmed ?Type lisinopril 10 mg tablet 10 mg PO QDAY 07/07/2206/29 History trazodone 50 mg tablet 50 mg PO HS 06/16/25 5 History azathioprine 50 mg tablet 50 mg PO QDAY 06/29/2506/29 History folic acid 1 mg tablet 1 mg PO QDAY 06/29/25 History sulfasalazine 500 mg tablet 500 mg PO BID 06/29/25 History Allergies Allergy/AdvReac Type Severity Reaction Status Date / Time No Known Allergies Allergy Verified 06/29/25 20:15 Visit Medications Acetaminophen (Acetaminophen 325 Mg Tablet) 650 mg PO Q6H PRN PRN Reason: Fever >101.5 Stop: 08/04/25 16:21 Acetaminophen (Acetaminophen 325 Mg Tablet) 650 mg PO Q6H PRN PRN Reason: PAIN SCALE 1-3 (mild Stop: 08/04/25 16:21 Bismuth Subsalicylate (Bismuth Subsalicyl 1 Ml) 30 ml PO QID@0700,1200,1700,2100 [facility] Stop: 08/04/25 16:44 Docusate Sodium (Docusate Sod 100 Mg Capsule) 100 mg PO QDAY [facility]; Protocol Stop: 08/04/25 16:29 Lactated Ringer's (Lactated Ringers) 1,000 mls @ 120 mls/hr IV .Q8H20M [facility] Stop: 08/04/25 16:29 Ciprofloxacin/Dextrose (Cipro Ivpb) 200 mg in 100 mls @ 100 mls/hr IV Q12HR [facility] Stop: 07/12/25 16:41 Metronidazole (Metronidazole 250 Mg Tablet) 500 mg PO Q4H [facility] Stop: 07/12/25 16:44 Morphine Sulfate (Morphine Sulf Inj 10 Mg/Ml Vial) 2 mg IVP Q6HR PRN PRN Reason: PAIN SCALE 7-10 (Severe Stop: 07/10/25 16:21 Ondansetron HCl (Ondansetron Inj 2 Mg/Ml Inj 2 Ml) 4 mg IVP Q6H PRN; Protocol PRN Reason: NAUSEA OR VOMITING Stop: 08/04/25 16:21 Pantoprazole Sodium (Pantoprazole Inj 40 Mg Vial) 40 mg IVP Q12HR [facility] Stop: 08/04/25 20:59 Sennosides (Senna Tablet) 1 tab PO QDAY [facility]; Protocol Stop: 08/04/25 16:29 Tetracycline HCl (Tetracycline 250 Mg Capsule) 500 mg PO QID [facility] Stop: 07/12/25 16:59 Discontinued Medications Ceftriaxone Sodium/Dextrose (Rocephin/D5w 1gm Iv Premix) 1 gm in 50 mls @ 100 mls/hr IV X1 ONE Stop: 07/05/25 05:45 Last Infusion: 07/05/25 05:42 Dose: Infused Metronidazole (Flagyl 500 Mg Iv) 500 mg in 100 mls @ 100 mls/hr IV X1 ONE Stop: 07/05/25 06:17 Last Infusion: 07/05/25 07:02 Dose: Infused Doxycycline Hyclate 100 mg/ (Sodium Chloride) 100 mls @ 100 mls/hr IV X1 ONE Stop: 07/05/25 07:54 Last Infusion: 07/05/25 08:14 Dose: Infused Sodium Chloride (Ns) 1,000 mls @ 999 mls/hr IV .Q1H1M ONE Stop: 07/05/25 08:00 Last Infusion: 07/05/25 08:16 Dose: Infused Piperacillin/Tazobactam/Dextrose (Zosyn) 3.375 gm in 50 mls @ 100 mls/hr IV X1 ONE Stop: 07/05/25 15:13 Last Admin: 07/05/25 15:36 Dose: 100 mls/hr Morphine Sulfate (Morphine Sulf Inj 10 Mg/Ml Vial) 5 mg IVP X1 ONE Stop: 07/05/25 03:18 Last Admin: 07/05/25 03:47 Dose: 5 mg Morphine Sulfate (Morphine Sulf Inj 10 Mg/Ml Vial) 4 mg IVP X1 ONE Stop: 07/05/25 05:30 Last Admin: 07/05/25 05:37 Dose: 4 mg Morphine Sulfate (Morphine Sulf Inj 10 Mg/Ml Vial) 4 mg IVP X1 ONE Stop: 07/05/25 08:05 Last Admin: 07/05/25 08:13 Dose: 4 mg Ondansetron HCl (Ondansetron Inj 2 Mg/Ml Inj 2 Ml) 4 mg IVP X1 ONE; Protocol Stop: 07/05/25 03:18 Last Admin: 07/05/25 03:47 Dose: 4 mg Ondansetron HCl (Ondansetron Inj 2 Mg/Ml Inj 2 Ml) 4 mg IVP X1 ONE; Protocol Stop: 07/05/25 08:05 Last Admin: 07/05/25 08:14 Dose: 4 mg Assessment & Plan Plan 80M with PMH of HTN, s/p pacemaker for symptomatic bradycardia, recently diagnosed with H. Pylory infection and IBD presenting with worsening generalized abdominal pain x3 days and constipation x4 days, admitted for management of cholecystitis and pancreatitis. ED course: bolus IVF, rocephin and flagyl #Calculus Cholecystitis #Pancreatitis #Abdominal pain #H.Pylori Infection Worsening abd pain x3 days with constipation x4 days. Denies nausea, emesis, hematochezia. Recent EGD biopsy positive for H. Pylori infection. Patient has not started therapy yet. Patient is afebrile with stable vital signs. On admission: leukocytosis of 15, T. Bili of 0.6, Alk phos of 171, TGA of 91, Ast 12, Alt 13, Lipase 1411. CT and RUQ US significant for cholelithiasis, acute cholecystitis and acute pancreatitis without pseudocyst. MRCP reveals no signs of choledocholithiasis. Surgery was consulted who recommended non-operative management with Iv Abx and IVF at this time. Surgery team will reevaluate at a later time for possibility of cholecystectomy if indicated. Plan: - Start Cipro (07/05/25-) - Start quadruple therapy for H. Pylory infection: Flagyl, Tetracycline, bismuth subsalicylate, and protonix (07/05/25-) - Start IVF LR maintenance at 150 - CLD advance as tolerated (recommended by GI to have patient on indefinite low fiber diet) - Consulted surgery, appreciate recs - Pain control with Tyelnol and morphin] - Pending blood culture - Pending lactate - Pending Lipid panel, TSH, A1C - Scheduled Senna and docusate - Monitor CBC, CMP #UTI Patient reports dysuria, with suprapubic tenderness one exam. UA is positive for leukocyte esterase and WBC. Plan: - Antibiotics as above - Pending urine culture #Pneumonia CT shows early left base pneumonia however CXR negative. Patient is asymptomatic with normal physicial exam. Plan: - Antibiotics as above should have coverage for any suspected underlying pneumonia #IBD Recently diagnosed via colonoscopy about a month ago. Patient sees Dr. Junior. Patient is unaware of the type. Patient was started on sulfasalazine and azathioprine a month ago by GI. Currently in no flare. Plan: - Resume home sulfasalazine and azathiprine once med rec is completed #Hypertension Chronic. Managed with medication. Plan: - Resume home lisinopril once med rec is completed #s/p pacemaker for symptomatic bradycardia Patient is currently stable and asymtomatic. Plan: - CTM Health Maintenance: Dispo: admit to tele DVT prophylaxis: SCDs GI prophylaxis: Protonix BID Code status: Full code Diet: CLD advance as tolerated (recommended by GI to have patient on indefinite low fiber diet) Plan of care discussed with attending Dr. Mendez and senior resident Dr. Hartman. Ney Varghese DO PGY1.
[2025-07-05 17:14] LABS: Lactate (Lactic Acid) 1.2 mMol/L (0.4-2.0)
[2025-07-05 17:58] LABS: Cardiac Risk Estimate 3.9 RATIO (4.0-6.7); Cholesterol 125 mg/dL (132-200); HDL Cholesterol 32 mg/dL (40-60); LDL Cholesterol,Calculated 77 mg/dL (0-130); Thyroid Stimulating Hormone 1.28 uIU/mL (0.55-4.78); Triglycerides 80 mg/dL (30-150)
[2025-07-05] MEDS: RINGERS LACTATED 1000 ML 1,000 ML 120 ML IV (18:19)
--- NOTE | 2025-07-05 18:22 | PD.SURCONS ---
HPI Consult details Consult date: 07/05/25 Reason for consultation narrative: Patient was seen in consultation because of acute pancreatitis and gallstones History of present illness: History of present illness revealed that the patient was in his usual health until about 3 days ago when he started having pain in the upper abdomen. The pain increased last night and he came to the emergency room. He denies any history of vomiting. Patient has not had such pains like this before. He denies any alcohol intake but he drank couple of beers recently. He never had a drinking problem. He is a smoker smoking about 4 cigarettes/day patient is retired but he is fairly active. He does have some restriction of activity because of his age and his heart condition. Patient does not give history of heart failure. Patient had a pacemaker inserted for sick sinus syndrome in 2021. Patient has been followed by Dr. Carrillo after the pacemaker insertion. Patient denies history of diabetes but he has hypertension Past Medical History Past Medical History NEUROLOGIC: Negative Neurological Disorders or Seizures CARDIAC: Positive Cardiac Disorders and Hypertension; Negative Congestive Heart Failure, Edema, Cellulitis or Varicose Veins RESPIRATORY: Negative Respiratory Disorders, Chronic Obstructive Pulmonary Disease (COPD), Asthma, Tuberculosis or Sleep Apnea GASTROINTESTINAL: Positive Gastrointestinal Disorders; Negative Hepatitis GENITOURINARY: Negative Genitourinary Disorders or Renal Disease MUSCULOSKELETAL: Negative Musculoskeletal Disorders ENT: Positive Cataracts ENDOCRINE: Negative Endocrine Disorders, Diabetes Mellitus Type 1 or Diabetes Mellitus Type 2 HEMATOLOGIC: Negative Blood Disorders or Sickle Cell Disease OTHER HISTORY: Positive Shingles, Chicken Pox, Measles and Mumps; Negative Hospitalization, Autoimmune Disease, Falls, Blood Transfusions, Blood Transfusion Reaction, Anesthesia Reactions, Chemotherapy, Radiation Therapy or Cancer Family History FAMILY HISTORY: Positive Family Gastrointestinal Problems, Family Cancer and Family Surgery; Negative Family Psychiatric Problems, Family Respiratory Disorders, Family Cardiac Disorders or Family Anesthesia Reaction Surgical History SURGICAL: Positive Pacemaker Social History SMOKING STATUS: Never smoker Meds Home Medications and Allergies Home Medications ?Medication ?Instructions ?Recorded ?Confirmed ?Type lisinopril 10 mg tablet 10 mg PO QDAY 07/07/22 06/29/25 History trazodone 50 mg tablet 50 mg PO HS 06/16/25 06/29/25 History azathioprine 50 mg tablet 50 mg PO QDAY 06/29/25 06/29/25 History folic acid 1 mg tablet 1 mg PO QDAY 06/29/25 06/29/25 History sulfasalazine 500 mg tablet 500 mg PO BID 06/29/25 06/29/25 History Allergies Allergy/AdvReac Type Severity Reaction Status Date / Time No Known Allergies Allergy Verified 06/29/25 20:15 Exam Vital Signs Temp Pulse Resp BP Pulse Ox O2 Del Method 98.0 F 70 16 126/71 95 Room Air 07/05/25 16:27 07/05/25 16:27 07/05/25 16:27 07/05/25 16:27 07/05/25 16:27 07/05/25 16:27 Narrative Exam Physical examination revealed a an elderly male who speaks only Swedish. He is about 5 foot 8 inches tall weighing 178 pounds with BMI of 27.1. His vital signs are normal Routine Chest/Breast/Axilla Exam Comments: Examination of the chest revealed a pacemaker on the left side Routine Abdominal Exam Comments: Examination of the abdomen showed tenderness in the epigastric region but no tenderness in the right upper quadrant Routine Extremities Exam Comments: Within normal limits Results Results: Laboratory Laboratory Narrative: Patient's laboratory workup showed leukocytosis around 15,000 with normal liver enzymes. His lipase is elevated more than 2000 obviously due to pancreatitis Results: Imaging Imaging narrative: CT scan of the abdomen showed pancreatitis and cholelithiasis and left base pneumonia Assessment & Plan Additional Assessment Additional comments: Impression: Gallstone pancreatitis Hypertension Status post pacemaker insertion Plan Plan: Patient will require laparoscopic cholecystectomy at the present admission because of the pancreatitis. We will wait for the pancreatitis to resolve and then proceed with surgery. There is no suggestion of any common bile duct stone. Patient will need a cardiology clearance from Dr. Carrillo who has been his quantitative analyst. I will follow the patient with you.
[2025-07-05] MEDS: CIPROFLOXACIN/D5w 400 MG IVPB 400 MG/200 ML BAG 200 MG IV ×2 (18:23→23:23)
[2025-07-05] MEDS: PANTOPRAZOLE 40 MG TABLET PO (18:28)
[2025-07-05] MEDS: DOCUSATE SOD 100 MG CAPSULE PO (18:28)
[2025-07-05] MEDS: BISMUTH SUBSALICYL 1 TABLET (Pepto-Bismol) 2 TAB PO ×2 (18:29→20:46)
[2025-07-06] VITALS (12 sets, daily range): BP systolic 113–173; BP diastolic 64–88; PULSE 60–99; RESP 12–18; TEMP 36.1–37.1; O2SAT 92–100
[2025-07-06] MEDS: RINGERS LACTATED 1000 ML 1,000 ML 120 ML IV ×3 (03:06→20:18)
[2025-07-06] MEDS: CIPROFLOXACIN/D5w 400 MG IVPB 400 MG/200 ML BAG 200 MG IV ×3 (05:10→21:01)
[2025-07-06] MEDS: BISMUTH SUBSALICYL 1 TABLET (Pepto-Bismol) 2 TAB PO ×2 (05:10→20:20)
[2025-07-06 06:08] LABS: Basophils # (Auto) 0.0 Thou/mm3 (0.0-0.2); Basophils % (Auto) 0 % (0-2.5); Eosinophils # (Auto) 0.5 Thou/mm3 (0.0-0.5); Eosinophils % (Auto) 5 % (0-10); Hematocrit 37.0 % (41.0-53.0); Hemoglobin 11.6 g/dL (13.5-16.0); Immature Granulocytes Auto 0.06 Thou/mm3 (0.00-0.00); Lymphocytes # (Auto) 1.3 Thou/mm3 (1.0-4.8); Lymphocytes % (Auto) 13 % (10-50); Mean Corpuscular HGB Conc 31.4 g/dl (31.0-37.0); Mean Corpuscular Hemoglobin 30.1 pg (25.0-35.0); Mean Corpuscular Volume 96 fL (80-100); Monocytes # (Auto) 1.0 Thou/mm3 (0.0-0.8); Monocytes % (Auto) 11 % (0-12); Neutrophils # (Auto) 7.0 Thou/mm3 (1.8-7.7); Neutrophils % (Auto) 70 % (37-80); Nucleated Red Blood Cell # 0.00 Thou/mm3 (0.00-0.00); Nucleated Red Blood Cell % 0 /100 WBC (0); Platelet Count 275 Thou/mm3 (140-440); RDW Standard Deviation 46.5 fL (35.1-43.9); Red Blood Count 3.86 Miln/mm3 (4.50-5.90); White Blood Count 9.9 Thou/mm3 (3.8-10.6)
[2025-07-06 06:41] LABS: Alanine Aminotransferase 13 U/L (10-49); Albumin, Serum 3.4 gm/dL (3.4-4.8); Albumin/Globulin Ratio 1.5 (1.2-2.2); Alkaline Phosphatase 172 U/L (46-116); Anion Gap 9 (7-16); Aspartate Amino Transferase 10 U/L (0-34); BUN/Creatinine Ratio 13 Ratio (12-20); Bilirubin,Total 0.6 mg/dL (0.3-1.2); Blood Urea Nitrogen 10 mg/dL (9-23); Calcium 9.4 mg/dL (8.3-10.6); Calcium (Corrected) 9.9 mg/dL (8.5-10.1); Carbon Dioxide 27.2 mMol/L (20.0-31.0); Chloride 104 mMol/L (98-107); Creatinine (Component) 0.8 mg/dL (0.6-1.3); Estimated Creatinine Clearance 71.3 mL/min (>60); Globulin 2.2 gm/dL (2.3-3.5); Glucose 116 mg/dL (74-106); Magnesium 2.0 mg/dL (1.6-2.6); Osmolality,Calculated 279 (275-295); Phosphorous 2.8 mg/dL (2.4-5.1); Potassium 4.1 mMol/L (3.4-5.1); Sodium 140 mMol/L (136-145); Total Protein 5.6 gm/dL (5.7-8.2); eGFR > 60 See Note
[2025-07-06 08:06] LABS: Glucose Estimated Average 117 mg/dL (80-131); Hemoglobin A1C 5.7 % Hgb (4.8-6.0)
[2025-07-06 08:38] LABS: Amylase 126 U/L (30-118); Lipase 506 U/L (12-53); Thyroid Stimulating Hormone 1.32 uIU/mL (0.55-4.78)
[2025-07-06] MEDS: FOLIC ACID 1 MG TABLET PO (08:45)
[2025-07-06] MEDS: DOCUSATE SOD 100 MG CAPSULE PO (08:45)
[2025-07-06] MEDS: PANTOPRAZOLE 40 MG TABLET PO ×2 (08:45→20:20)
--- NOTE | 2025-07-06 10:11 | PC.SS ---
Bail Attacher (SURINDER) Irene, along with BARRY Dobbins, met with the patient and his at the bedside to complete an initial assessment and discuss a discharge plan. Patient is alert and oriented to person, place, time, and situation, and provided verbal consent to participate in the assessment with his present in the room. Patient is Holger Dominique, 80 y/o, , , Slovak-speaking male. Patient presented to the ED with c/o diffuse abdominal pain and constipation. Patient reports living with his , Isi Dominique, at [address] [phone] Patient designates his , Isi Dominique, , as his surrogate medical decision maker. Patient reports his baseline is independent and has no DME at home. Patient requested a cane; SURINDER will consult with MD/PT and, if appropriate and available, will provide justine care for a cane. Patient's PCP is Dr. Vineet Rosa. Patient's discharge plan is home with family support and private transportation by family. Surrogate medical decision maker: , Isi Dominique, Discharge plan: Home
[2025-07-06] MEDS: POLYETHYLENE GLYCOL 17 GM PACKET PO (10:59)
--- NOTE | 2025-07-06 11:10 | ESPR_ITS ---
<Statement entered by Koby Mendez MD - 07/06/25 13:41> I attest that I was physically present for the evaluation, physical examination, lab and imaging review of the patient with the residents. I discussed the case with the residents and agree with the findings and plans of care as documented above. At bedside today, patient is states he continues to have abdominal pain but improved compared to yesterday. Continues to be on clear liquid diet, tolerating well. Patient has not passed gas or bowel movements. Denies any nausea and vomiting. Discussed with general surgery, recommended cardiac clearance. Cardiology consult was placed, patient cleared for surgery. Lipase is downtrending compared to yesterday. WBC count has also improved to 9.9 from 15.0 yesterday. We will continue with ciprofloxacin along with quadruple therapy for H. pylori. Continues to be on sulfasalazine and azathioprine for IBD. Patient is planned for cholecystectomy later during the day with general surgery, started n.p.o. from this morning. Koby Mendez MD <Statement entered by Greg Novoa MD - 07/06/25 11:54> Patient was examined and case was reviewed with team including attending physician. Note reviewed, I agree with most of its contents and agree with the patient's care as documented by Dr. Varghese Patient seen and evaluated at the bedside. Vitals and labs reviewed. Cardiology will evaluate the patient today for cardiac clearance. Patient seen by surgery services today made the patient n.p.o. will be taken to surgery later today for cholecystectomy. Will evaluate postoperatively. Case discussed with my attending Dr. Vanessa Novoa MD PGY-2 Disclaimer: Despite multiple revisions, due to the dictation software being used, the document bellow may not be free of grammatical errors including phonetic/typographic errors. However, this does not deter from our commitment to providing health care in the patient's best interest in mind. Documentation for date of: 07/06/25 Subjective Subjective Interval history: 07/06/25: NIDHI. VSS. Patient was evaluated and examined at bedside. Patient is tolerating clear liquid diet and denies nausea or vomiting. Patient states that he has not had a bowel movement yet and has not passed flatus. Patient reports some improvement in his abdominal pain. General surgery was consulted and requested cardiology clearence for cholecystectomy procedure. Per general surgery request, patient will be placed on NPO for potential surgery later once the pancreatitis is improved. Exam Vital Signs Temp Pulse Resp BP Pulse Ox O2 Del Method 97.6 F 82 14 118/66 96 Room Air 07/06/25 08:00 07/06/25 08:00 07/06/25 08:00 07/06/25 08:00 07/06/25 08:00 07/06/25 08:00 Narrative Exam General: 80 year-old appearing male in no acute distress, good hygiene, Amharic speaking HEENT: NCAT, moist oral mucosa, external ear and nose without deformities Neck: No thyromegaly, trachea midline CV: RRR with S1 and S2, no murmurs or gallops Resp: CTAB, no wheezing, rhonchi, in no respiratory distress Ext: no pretibial edema Abdomen: soft mildly distended with discomfort to palpation in RUQ and epigastric region without any rigidity or peritinic signs. Negative Sanchez sign : Suprapubic tenderness noted Psych: alert and oriented x4. good affect Objective Labs 07/06/25 05:10 07/06/25 05:10 Labs: Laboratory Results - last 24 hr 07/05/25 07/06/25 17:01 05:10 WBC 9.9 D RBC 3.86 L Hgb 11.6 L Hct 37.0 L MCV 96 MCH 30.1 MCHC 31.4 RDW Std Deviation 46.5 H Plt Count 275 D Neut % (Auto) 70 Lymph % (Auto) 13 [place] % (Auto) 11 Eos % (Auto) 5 Baso % (Auto) 0 Neut # (Auto) 7.0 Lymph # (Auto) 1.3 [place] # (Auto) 1.0 H Eos # (Auto) 0.5 Baso # (Auto) 0.0 Immature Gran # (Auto) 0.06 H Absolute Nucleated RBC 0.00 Immature Gran % 1 H Nucleated RBC % 0 Sodium 140 Potassium 4.1 Chloride 104 Carbon Dioxide 27.2 Anion Gap 9 BUN 10 Creatinine 0.8 Estim Creat Clear Calc 71.3 eGFR > 60 BUN/Creatinine Ratio [address] Glu mg/dL 117 Hemoglobin A1c 5.7 Calculated Osmolality 279 Lactic Acid 1.2 Calcium 9.4 Corrected Calcium 9.9 Phosphorus 2.8 Magnesium 2.0 Total Bilirubin 0.6 AST 10 ALT 13 Alkaline Phosphatase 172 H Total Protein 5.6 L Albumin 3.4 D Globulin 2.2 L Albumin/Globulin Ratio 1.5 Triglycerides 80 Cholesterol 125 L LDL Cholesterol, Calc 77 HDL Cholesterol 32 L Cholesterol/HDL Ratio 3.9 L Amylase 126 H Lipase 506 H D TSH 1.28 1.32 Quality Measures Quality Measures none Advance care planning discussed with:: patient Assessment & Plan Assessment Current Active Medications: Generic Name Dose Route Start Last Admin Trade Name Freq PRN Reason Stop Dose Admin Acetaminophen 650 mg 07/05/25 16:22 Acetaminophen 325 Mg Tablet PO 08/04/25 16:21 Q6H PRN Fever >101.5 Acetaminophen 650 mg 07/05/25 16:22 Acetaminophen 325 Mg Tablet PO 08/04/25 16:21 Q6H PRN PAIN SCALE 1-3 (mild Azathioprine 50 mg 07/06/25 09:00 07/06/25 08:45 Azathioprine 50 Mg Tablet PO 08/05/25 08:59 50 mg QDAY HUGO Administration Bismuth Subsalicylate 2 tab 07/05/25 17:15 07/06/25 05:10 Bismuth Subsalicyl 1 Tablet (Pepto-Bismol) PO 08/04/25 17:14 2 tab QID HUGO Administration Docusate Sodium 100 mg 07/05/25 16:30 07/06/25 08:45 Docusate Sod 100 Mg Capsule PO 08/04/25 16:29 100 mg QDAY HUGO Administration Protocol Folic Acid 1 mg 07/06/25 09:00 07/06/25 08:45 Folic Acid 1 Mg Tablet PO 08/05/25 08:59 1 mg QDAY HUGO Administration Lactated Ringer's 1,000 mls @ 120 mls/hr 07/05/25 16:30 07/06/25 10:59 Lactated Ringers IV 08/04/25 16:29 120 mls/hr .Q8H20M HUGO Administration Ciprofloxacin/Dextrose 400 mg in 200 mls @ 200 mls/hr 07/05/25 17:15 07/06/25 05:10 Cipro Ivpb IV 07/12/25 17:14 200 mls/hr Q8HR HUGO Administration Metronidazole 500 mg 07/05/25 21:00 07/06/25 05:10 Metronidazole 250 Mg Tablet PO 07/12/25 20:59 500 mg QID HUGO Administration Morphine Sulfate 2 mg 07/05/25 16:22 Morphine Sulf Inj 10 Mg/Ml Vial IVP 07/10/25 16:21 Q6HR PRN PAIN SCALE 7-10 (Severe Ondansetron HCl 4 mg 07/05/25 16:22 Ondansetron Inj 2 Mg/Ml Inj 2 Ml IVP 08/04/25 16:21 Q6H PRN NAUSEA OR VOMITING Protocol Pantoprazole Sodium 40 mg 07/05/25 17:15 07/06/25 08:45 Pantoprazole 40 Mg Tablet PO 08/04/25 17:14 40 mg Q12HR HUGO Administration Sennosides 1 tab 07/05/25 16:30 07/06/25 08:45 Senna Tablet PO 08/04/25 16:29 1 tab QDAY HUGO Administration Protocol Sulfasalazine 500 mg 07/06/25 09:00 07/06/25 08:45 Sulfasalazine 500 Mg Tablet PO 08/05/25 08:59 500 mg BID HUGO Administration Tetracycline HCl 500 mg 07/05/25 17:00 07/06/25 05:10 Tetracycline 250 Mg Capsule PO 07/12/25 16:59 500 mg QID HUGO Administration Plan 80M with PMH of HTN, s/p pacemaker for symptomatic bradycardia, recently diagnosed with H. Pylory infection and IBD presenting with worsening generalized abdominal pain x3 days and constipation x4 days, admitted for management of cholecystitis and pancreatitis. ED course: bolus IVF, rocephin and flagyl #Calculus Cholecystitis #Gallstone Pancreatitis #Abdominal pain #H.Pylori Infection Worsening abd pain x3 days with constipation x4 days. Denies nausea, emesis, hematochezia. Recent EGD biopsy positive for H. Pylori infection. Patient has not started therapy yet. Patient is afebrile with stable vital signs. On admission: leukocytosis of 15, T. Bili of 0.6, Alk phos of 171, TGA of 91, Ast 12, Alt 13, Lipase 1411. CT and RUQ US significant for cholelithiasis, acute cholecystitis and acute pancreatitis without pseudocyst. MRCP reveals no signs of choledocholithiasis. Surgery was consulted who recommended non-operative management with Iv Abx and IVF initially. Surgery team will requested cardiology clearence and NPO placement for potential cholecystectomy once pancreatitis improves. Leukocytosis improved to 9.9. Patient remains afebrile. Lipase improved to 506, amylase 126, Lactate of 1.2. Lipid panel wnl, A1C 5.7, TSH 1.28. Plan: - Continue Cipro (07/05/25-) - Continue quadruple therapy for H. Pylory infection: Flagyl, Tetracycline, bismuth subsalicylate, and protonix (07/05/25-) - Continue IVF LR maintenance at 120 - NPO - Consulted surgery, plan to do cholecystectomy after cardiology clearance and improvement of pancreatitis - Pending cardiology clearance - Pain control with Tyelnol and morphin - Pending blood culture - Scheduled Senna and docusate - Given 1x Miralax - CTM CBC, CMP #UTI Patient reports dysuria, with suprapubic tenderness one exam. UA is positive for leukocyte esterase and WBC. Plan: - Antibiotics as above - Pending urine culture #Early left base Pneumonia CT shows early left base pneumonia however CXR negative. Low concern for pneumonia as this might be due to atelactasis. Patient is asymptomatic with normal physicial exam. Plan: - Antibiotics as above should have coverage for any potential underlying pneumonia #IBD Recently diagnosed via colonoscopy about a month ago. Patient sees Dr. Junior. Patient is unaware of the type. Patient was started on sulfasalazine and azathioprine a month ago by GI. Currently in no flare. Plan: - Continue home sulfasalazine, azathiprine, and folic acid #Hypertension Chronic. Managed with medication. Plan: - Held home lisinopril given soft BP #s/p pacemaker for symptomatic bradycardia Patient is currently stable and asymtomatic. Plan: - CTM Health Maintenance: Dispo: admit to tele DVT prophylaxis: SCDs GI prophylaxis: Protonix BID Code status: Full code Diet: NPO (recommended by GI to have patient on indefinite low fiber diet) Plan of care discussed with attending Dr. Mendez and senior resident Dr. Hartman. Ney Varghese DO PGY1
--- NOTE | 2025-07-06 11:49 | PD.IMCONS ---
HPI Data of Consult Requesting Physician: Koby Mendez MD Primary Care Provider: Vineet Rosa PA-C Consult Narrative History of present illness: This is an 80 years old male with past medical history of hypertension, status post pacemaker placement for symptomatic bradycardia, recent H. pylori infection and inflammatory bowel disease pt seen in the ER with abdominal pain - in the upper abdomen subsequent evaluation reveals Acuet cholecystitis- cardiology clearance requested pt currently denies chest pain or sob EKG shows a - paced v sensed beates ; no acute ST-T wave changes noted cc:: cc: Koby Mendez MD Meds Home Medications and Allergies Home Medications ?Medication ?Instructions ?Recorded ?Confirmed ?Type lisinopril 10 mg tablet 10 mg PO QDAY 07/07/22 07/05/25 History trazodone 50 mg tablet 50 mg PO HS 06/16/25 07/05/25 History azathioprine 50 mg tablet 50 mg PO QDAY 06/29/25 07/05/25 History folic acid 1 mg tablet 1 mg PO QDAY 06/29/25 07/05/25 History sulfasalazine 500 mg tablet 500 mg PO BID 06/29/25 07/05/25 History clonazepam 0.5 mg tablet 0.5 mg PO HS 07/05/25 07/05/25 History doxycycline hyclate 100 mg capsule 100 mg PO BID 07/05/25 07/05/25 History metronidazole 500 mg tablet 500 mg PO BID 07/05/25 07/05/25 History omeprazole 40 mg capsule,delayed 40 mg PO .od 07/05/25 07/05/25 History release Allergies Allergy/AdvReac Type Severity Reaction Status Date / Time No Known Allergies Allergy Verified 06/29/25 20:15 Exam Vital Signs Temp Pulse Resp BP Pulse Ox O2 Del Method 97.6 F 82 14 118/66 96 Room Air 07/06/25 08:00 07/06/25 08:00 07/06/25 08:00 07/06/25 08:00 07/06/25 08:00 07/06/25 08:00 Results Labs 07/06/25 05:10 07/06/25 05:10 Labs: Short CBC 07/06/25 Range/Units 05:10 WBC 9.9 D (3.8-10.6) Thou/mm3 Hgb 11.6 L (13.5-16.0) g/dL Hct 37.0 L (41.0-53.0) % Plt Count 275 D (140-440) Thou/mm3 BMP 07/06/25 05:10 Sodium 140 Potassium 4.1 Chloride 104 Carbon Dioxide 27.2 BUN 10 Creatinine 0.8 Glucose 116 H Calcium 9.4 Liver Function 07/06/25 Range/Units 05:10 Total Bilirubin 0.6 (0.3-1.2) mg/dL AST 10 (0-34) U/L ALT 13 (10-49) U/L Alkaline Phosphatase 172 H (46-116) U/L Albumin 3.4 D (3.4-4.8) gm/dL Assessment and Plan Assessment and plan (1) Elevated lipase: Status: Acute (2) Cholelithiasis: Status: Acute (3) Pacemaker: Status: Acute (4) Preop cardiovascular exam: Status: Acute Additional Assessment & Plan Additional Plan: pt offers not cardiac symptoms EKG no acute changes troponin pending pt in optimal cardiac condition for the planned surgery
--- NOTE | 2025-07-06 11:50 | ESPR_ITS ---
Documentation for date of: 07/06/25 Subjective Subjective Brief History: History of present illness revealed that the patient was in his usual health until about 3 days ago when he started having pain in the upper abdomen. The pain increased last night and he came to the emergency room. He denies any history of vomiting. Patient has not had such pains like this before. He denies any alcohol intake but he drank couple of beers recently. He never had a drinking problem. He is a smoker smoking about 4 cigarettes/day patient is retired but he is fairly active. He does have some restriction of activity because of his age and his heart condition. Patient does not give history of heart failure. Patient had a pacemaker inserted for sick sinus syndrome in 2021. Patient has been followed by Dr. Carrillo after the pacemaker insertion. Patient denies history of diabetes but he has hypertension Narrative: Patient states his abdominal pain is unchanged. He is taking clear liquids this morning without any pain Exam Vital Signs Temp Pulse Resp BP Pulse Ox O2 Del Method 97.6 F 82 14 118/66 96 Room Air 07/06/25 08:00 07/06/25 08:00 07/06/25 08:00 07/06/25 08:00 07/06/25 08:00 07/06/25 08:00 Patient's vital signs are normal Routine Abdominal Exam Comments: Abdominal examination shows tenderness in the epigastric region Results Results: Laboratory Laboratory Narrative: Lab results so almost normal amylase and lipase Assessment & Plan Assessment Additional comments: Impression: Resolving gallstone pancreatitis Plan Plan: Patient can be taken to the operating room for laparoscopic cholecystectomy. I have talked with Dr. Carrillo the rfid specialist who has cleared him. We shall proceed with surgery today
[2025-07-06] MEDS: MORPHINE SULF INJ 10 MG/ML VIAL 2 MG IVP (12:18)
[2025-07-06 13:19] LABS: Troponin I < 0.002 ng/mL (0.0-0.045)
[2025-07-06] MEDS: HYDROmorphone INJ 2 MG/ML VIAL 0.5 MG IVP (13:56)
--- NOTE | 2025-07-06 18:43 | ESOP_ITS ---
Date of Procedure 07/06/25 Pre Op Diagnosis Gallstone pancreatitis Post Op Diagnosis Same cholelithiasis without any acute inflammation but extensive adhesions due to chronic inflammation Procedure Laparoscopic cholecystic Findings Patient was found to have extensive adhesions over the gallbladder on the omentum due to chronic cholecystitis and gallbladder could not be easily dissected Procedure Description Patient was brought to the operating room and endotracheal anesthesia was given. Abdomen was prepped with ChloraPrep solution and draped in a sterile manner. Timeout was performed. I made a small incision below the umbilicus and the fascia was cleaned. Veress needle was inserted and pneumoperitoneum up to 15 mm was obtained. Then I placed another 5 mm trocar in the epigastric region and two 5 mm trocars laterally. Gallbladder was found to be noninflamed but majority of the gallbladder was covered with omentum which was densely adherent. With the help of Gamal and burke retractors the gallbladder was pulled upwards and outwards towards the patient's right shoulder. Then I tried to peel off the omentum and encountered a lot of bleeding. There are adhesions of omentum onto the liver also. These were lysed with harmonic simon. Then the neck of the gallbladder was reached with some difficulty using a 30 degree laparoscope. At this time the gallbladder opened up and leaked bile. This was washed out promptly. There was a large stone in the gallbladder with. I change his epigastric port into a 12 mm trocar and using a gallbladder stone forceps I tried to remove it. But the stone was very hard and could not be broken. Therefore I used an Endopouch and introduced through the 12 mm port in the epigastric region and then retrieve the stone. Then the remaining gallbladder was inspected to make sure that we did not go beyond the gallbladder. I used the advantage of care in the gallbladder to outline the neck. Then what appeared to be like a cystic duct going from there was isolated and clipped doubly and then divided. Then the gallbladder was removed from the liver bed but I could not find the cystic artery but it was coagulated in situ using harmonic simon. After the gallbladder was removed the liver bed was coagulated with cautery and Surgicel was applied. The adhesions that were removed from the liver bed also was oozing and Surgicel was applied because of the capsule test. A 15 round Chan-Mcfarland was left in the Morison's pouch and it was stitched outside the skin with 2-0 silk then the gallbladder was removed with another Endopouch through the epigastric port which was closed with interrupted 0 Ethibond. The umbilical port also was closed with interrupted 0 Ethibond for the fascia the skin was closed with subcuticular 4-0 nylon after injecting local anesthesia. Patient tolerated procedure well and left operating room in stable condition. Anesthesia GETA Pathology / specimen Other (Gallbladder and the stone) IVF Infused 500 Estimated Blood Loss 150 Surgeon Krupa Segovia MD Surgical Staff Operation Date: 07/06/25 16:15 Case Staff TEXTILE BAG SEWER: Taylor Parish RN First Assistant: Lucinda Villar
--- NOTE | 2025-07-06 19:22 | SUR.PHASEI ---
1844: pt arrived to PACU via gurney drowsy but arouses to voice, breathing unlabored, dressing to abdomen clean, dry, and intact report from Ni ROWLAND 1909: pt tolerating oral fluids without difficulty swallowing or n/v 1921: pt drowsy but arouses to voice, breathing unlabored, dressing to abdomen clean, dry, and intact, pt denies pain, report called to Zulema ROWLAND, pt transferred to room at this time.
[2025-07-07] VITALS (12 sets, daily range): BP systolic 91–154; BP diastolic 62–86; PULSE 61–81; RESP 12–98; TEMP 36.1–37.4; O2SAT 93–99; BMI 26.9
[2025-07-07] MEDS: RINGERS LACTATED 1000 ML 1,000 ML 120 ML IV ×3 (03:47→18:37)
[2025-07-07] MEDS: BISMUTH SUBSALICYL 1 TABLET (Pepto-Bismol) 2 TAB PO ×3 (05:17→16:35)
[2025-07-07] MEDS: CIPROFLOXACIN/D5w 400 MG IVPB 400 MG/200 ML BAG 200 MG IV (05:18)
[2025-07-07 05:46] LABS: Basophils # (Auto) 0.0 Thou/mm3 (0.0-0.2); Basophils % (Auto) 0 % (0-2.5); Eosinophils # (Auto) 0.0 Thou/mm3 (0.0-0.5); Eosinophils % (Auto) 0 % (0-10); Hematocrit 35.4 % (41.0-53.0); Hemoglobin 11.4 g/dL (13.5-16.0); Immature Granulocytes Auto 0.05 Thou/mm3 (0.00-0.00); Lymphocytes # (Auto) 0.5 Thou/mm3 (1.0-4.8); Lymphocytes % (Auto) 5 % (10-50); Mean Corpuscular HGB Conc 32.2 g/dl (31.0-37.0); Mean Corpuscular Hemoglobin 30.9 pg (25.0-35.0); Mean Corpuscular Volume 96 fL (80-100); Monocytes # (Auto) 0.5 Thou/mm3 (0.0-0.8); Monocytes % (Auto) 5 % (0-12); Neutrophils # (Auto) 8.9 Thou/mm3 (1.8-7.7); Neutrophils % (Auto) 89 % (37-80); Nucleated Red Blood Cell # 0.00 Thou/mm3 (0.00-0.00); Nucleated Red Blood Cell % 0 /100 WBC (0); Platelet Count 263 Thou/mm3 (140-440); RDW Standard Deviation 46.2 fL (35.1-43.9); Red Blood Count 3.69 Miln/mm3 (4.50-5.90); White Blood Count 10.0 Thou/mm3 (3.8-10.6)
[2025-07-07 06:33] LABS: Alanine Aminotransferase 28 U/L (10-49); Albumin, Serum 3.3 gm/dL (3.4-4.8); Albumin/Globulin Ratio 1.5 (1.2-2.2); Alkaline Phosphatase 244 U/L (46-116); Anion Gap 10 (7-16); Aspartate Amino Transferase 41 U/L (0-34); BUN/Creatinine Ratio 16 Ratio (12-20); Bilirubin,Total 0.5 mg/dL (0.3-1.2); Blood Urea Nitrogen 14 mg/dL (9-23); Calcium 9.2 mg/dL (8.3-10.6); Calcium (Corrected) 9.8 mg/dL (8.5-10.1); Carbon Dioxide 25.4 mMol/L (20.0-31.0); Chloride 105 mMol/L (98-107); Creatinine (Component) 0.9 mg/dL (0.6-1.3); Estimated Creatinine Clearance 75.0 mL/min (>60); Globulin 2.2 gm/dL (2.3-3.5); Glucose 139 mg/dL (74-106); Magnesium 1.9 mg/dL (1.6-2.6); Osmolality,Calculated 281 (275-295); Phosphorous 3.8 mg/dL (2.4-5.1); Potassium 4.2 mMol/L (3.4-5.1); Sodium 140 mMol/L (136-145); Total Protein 5.5 gm/dL (5.7-8.2); eGFR > 60 See Note
--- NOTE | 2025-07-07 07:31 | ESPR_ITS ---
<Statement entered by Koby Mendez MD - 07/07/25 16:48> I attest that I was physically present for the evaluation, physical examination, lab and imaging review of the patient with the residents. I discussed the case with the residents and agree with the findings and plans of care as documented below. Patient had a rapid response called this afternoon, due to chest/epigastric pain. EKG was done, did not show ST elevation, showed right bundle branch and changes similar to previous readings. Troponin was negative. Patient was started on regular diet, started having pain after he had his meal. Chest x-ray obtained only showed vascular congestion. Abdominal x-ray is concerning for ileus. We will discontinue his regular diet and put him back on clear liquid diet with close monitoring for abdominal pain, nausea, vomiting and bowel movement. Koby Mendez MD <Statement entered by Ann Mendieta MD - 07/07/25 15:54> Note reviewed, I agree with most of its contents and agree with the patient's care as documented by Dr. Varghese. Patient examined at bedside. He is post op day 1 of cholecystectomy. During procedure, Dr. Mclean found severe adhesions around gallbladder. He is tolerating pain well. Endorses flatulence but denies any bowel movements. Blood cultures have been negative. This afternoon 3:05 PM he had RR due to pressure type chest pain, BP was 154/81 and complaining of dizziness. Pain was 8/10, troponins were negative. EKG showed paced rhythm with no significant ST changes. We will revert diet to clear liquids and continue to monitor. Advance again slowly once symptoms improve. The patient's management plan was discussed with my attending physician Dr. Mendez. Ann Mendieta, PGY-2 Documentation for date of: 07/07/25 Subjective Subjective Interval history: 07/07/25 Patient was evaluated and examined at bedside. Patient is now POD#1 from lap natanael. Patient tolerated the procedure well. NAEON. Patient is afebrile with stable vital signs. Tolerating clear liquid diet well with no nausea or vomiting. Patient reports improvement in his abdominal pain and reports passing flatus. No bowel movements yet. Lap sites are clean, dry, and intact. Patient reports resolution of his dysuria. Exam Vital Signs Temp Pulse Resp BP Pulse Ox O2 Del Method O2 Flow Rate 96.9 F 66 12 121/70 94 L Nasal Cannula 3 07/07/25 03:30 07/07/25 04:00 07/07/25 03:30 07/07/25 03:30 07/07/25 03:30 07/06/25 19:53 07/06/25 19:53 Narrative Exam General: 80 year-old appearing male in no acute distress, good hygiene, [place] speaking HEENT: NCAT, moist oral mucosa, external ear and nose without deformities Neck: No thyromegaly, trachea midline CV: RRR with S1 and S2, no murmurs or gallops Resp: CTAB, no wheezing, rhonchi, in no respiratory distress Ext: no pretibial edema Abdomen: soft mildly distended, nontender to palpation without any rigidity or peritinic signs. Lap sites are clean, dry, and intact. NICOLÁS draining minimal to moderate serosanguineous fluid : No suprapubic tenderness noted. Psych: alert and oriented x4. good affect Objective Labs 07/07/25 05:02 07/07/25 05:02 Labs: Laboratory Results - last 24 hr 07/06/25 07/06/25 07/07/25 05:10 12:14 05:02 WBC 10.0 RBC 3.69 L Hgb 11.4 L Hct 35.4 L MCV 96 MCH 30.9 MCHC 32.2 RDW Std Deviation 46.2 H Plt Count 263 Neut % (Auto) 89 H Lymph % (Auto) 5 L [place] % (Auto) 5 Eos % (Auto) 0 Baso % (Auto) 0 Neut # (Auto) 8.9 H Lymph # (Auto) 0.5 L [place] # (Auto) 0.5 Eos # (Auto) 0.0 Baso # (Auto) 0.0 Immature Gran # (Auto) 0.05 H Absolute Nucleated RBC 0.00 Immature Gran % 1 H Nucleated RBC % 0 Sodium 140 Potassium 4.2 Chloride 105 Carbon Dioxide 25.4 Anion Gap 10 BUN 14 Creatinine 0.9 Estim Creat Clear Calc 75.0 eGFR > 60 BUN/Creatinine Ratio [address] Glu mg/dL 117 Hemoglobin A1c 5.7 Calculated Osmolality 281 Calcium 9.2 Corrected Calcium 9.8 Phosphorus 3.8 Magnesium 1.9 Total Bilirubin 0.5 AST 41 H ALT 28 Alkaline Phosphatase 244 H D Troponin I < 0.002 Total Protein 5.5 L Albumin 3.3 L Globulin 2.2 L Albumin/Globulin Ratio 1.5 Amylase 126 H Lipase 506 H D TSH 1.32 Quality Measures Quality Measures none Advance care planning discussed with:: patient Assessment & Plan Assessment Current Active Medications: Generic Name Dose Route Start Last Admin Trade Name Freq PRN Reason Stop Dose Admin Acetaminophen 650 mg 07/05/25 16:22 Acetaminophen 325 Mg Tablet PO 08/04/25 16:21 Q6H PRN Fever >101.5 Acetaminophen 650 mg 07/07/25 03:28 Acetaminophen 325 Mg Tablet PO 08/04/25 16:21 Q6H PRN Pain Scale 1-5 Azathioprine 50 mg 07/06/25 09:00 07/06/25 08:45 Azathioprine 50 Mg Tablet PO 08/05/25 08:59 50 mg QDAY HUGO Administration Bismuth Subsalicylate 2 tab 07/05/25 17:15 07/07/25 05:17 Bismuth Subsalicyl 1 Tablet (Pepto-Bismol) PO 08/04/25 17:14 2 tab QID HUGO Administration Docusate Sodium 100 mg 07/05/25 16:30 07/06/25 08:45 Docusate Sod 100 Mg Capsule PO 08/04/25 16:29 100 mg QDAY HUGO Administration Protocol Folic Acid 1 mg 07/06/25 09:00 07/06/25 08:45 Folic Acid 1 Mg Tablet PO 08/05/25 08:59 1 mg QDAY HUGO Administration Lactated Ringer's 1,000 mls @ 120 mls/hr 07/05/25 16:30 07/07/25 03:47 Lactated Ringers IV 08/04/25 16:29 120 mls/hr .Q8H20M HUGO Administration Ciprofloxacin/Dextrose 400 mg in 200 mls @ 200 mls/hr 07/05/25 17:15 07/07/25 05:18 Cipro Ivpb IV 07/12/25 17:14 200 mls/hr Q8HR HUGO Administration Magnesium Sulfate 2 gm in 50 mls @ 25 mls/hr 07/07/25 07:03 Magnesium Sulfate Ivpb IV 07/07/25 09:02 X1 ONE Metronidazole 500 mg 07/05/25 21:00 07/07/25 05:18 Metronidazole 250 Mg Tablet PO 07/12/25 20:59 500 mg QID HUGO Administration Morphine Sulfate 4 mg 07/07/25 03:28 Morphine Sulf Inj 10 Mg/Ml Vial IVP 07/11/25 19:33 Q4HR PRN Pain 6-10 Ondansetron HCl 4 mg 07/05/25 16:22 Ondansetron Inj 2 Mg/Ml Inj 2 Ml IVP 08/04/25 16:21 Q6H PRN NAUSEA OR VOMITING Protocol Pantoprazole Sodium 40 mg 07/05/25 17:15 07/06/25 20:20 Pantoprazole 40 Mg Tablet PO 08/04/25 17:14 40 mg Q12HR HUGO Administration Sennosides 1 tab 07/05/25 16:30 07/06/25 08:45 Senna Tablet PO 08/04/25 16:29 1 tab QDAY HUGO Administration Protocol Sulfasalazine 500 mg 07/06/25 09:00 07/06/25 20:19 Sulfasalazine 500 Mg Tablet PO 08/05/25 08:59 500 mg BID HUGO Administration Tetracycline HCl 500 mg 07/05/25 17:00 07/07/25 05:17 Tetracycline 250 Mg Capsule PO 07/12/25 16:59 500 mg QID HUGO Administration Plan 80M with PMH of HTN, s/p pacemaker for symptomatic bradycardia, recently diagnosed with H. Pylory infection and IBD presenting with worsening generalized abdominal pain x3 days and constipation x4 days, admitted for management of cholecystitis and pancreatitis. ED course: bolus IVF, rocephin and flagyl #Calculus Cholecystitis s/p lap natanael #Gallstone Pancreatitis (improved) #Abdominal pain (resolved) #H.Pylori Infection Worsening abd pain x3 days with constipation x4 days. Denies nausea, emesis, hematochezia. Recent EGD biopsy positive for H. Pylori infection. Patient has not started therapy yet. Patient is afebrile with stable vital signs. On admission: leukocytosis of 15, T. Bili of 0.6, Alk phos of 171, TGA of 91, Ast 12, Alt 13, Lipase 1411. CT and RUQ US significant for cholelithiasis, acute cholecystitis and acute pancreatitis without pseudocyst. MRCP reveals no signs of choledocholithiasis. Surgery was consulted who recommended non-operative management with Iv Abx and IVF initially until improvement of pancreatitis. Patient is now POD#1 from lap natanael. Passing flatus but no bowel movement yet. Leukocytosis resolved to 10. Patient remains afebrile. Blood culture negative. NICOLÁS draining minimal to moderate serosanguineous fluid Plan: - Discontinue Cipro (07/05/25-07/07/25) - Continue quadruple therapy for H. Pylory infection: Flagyl, Tetracycline, bismuth subsalicylate, and protonix (07/05/25-) - Continue IVF LR maintenance at 120 - Patient is okay for d/c from general surgery standpoint - Advance diet to low fiber - Pain control with Tyelnol and morphin - Scheduled Senna and docusate - CTM CBC, CMP #UTI Patient reported dysuria, with suprapubic tenderness one exam. UA is positive for leukocyte esterase and WBC. urine culture negative Plan: - Antibiotics as above #Early left base Pneumonia CT shows early left base pneumonia however CXR negative. Low concern for pneumonia as this might be due to atelactasis. Patient is asymptomatic with normal physicial exam. Plan: - Antibiotics as above should have coverage for any potential underlying pneumonia #IBD Recently diagnosed via colonoscopy about a month ago. Patient sees Dr. Junior. Patient is unaware of the type. Patient was started on sulfasalazine and azathioprine a month ago by GI. Currently in no flare. Plan: - Continue home sulfasalazine, azathiprine, and folic acid #Hypertension Chronic. Managed with medication. Plan: - Held home lisinopril given soft BP #s/p pacemaker for symptomatic bradycardia Patient is currently stable and asymtomatic. Plan: - CTM Health Maintenance: Dispo: admit to tele DVT prophylaxis: SCDs GI prophylaxis: Protonix BID Code status: Full code Diet: Low fiber Plan of care discussed with attending Dr. Mendez and senior resident Dr. Mendieta. Ney Varghese, DO PGY1
[2025-07-07] MEDS: Magnesium Sulfate 2 GM Ivpb 2 GM/50 ML BAG IV (08:12)
[2025-07-07] MEDS: PANTOPRAZOLE 40 MG TABLET PO ×2 (08:13→21:47)
[2025-07-07] MEDS: FOLIC ACID 1 MG TABLET PO (08:14)
[2025-07-07] MEDS: DOCUSATE SOD 100 MG CAPSULE PO (08:15)
--- NOTE | 2025-07-07 12:52 | PD.SURPROG ---
Documentation for date of: 07/07/25 Subjective Subjective Brief History: History of present illness revealed that the patient was in his usual health until about 3 days ago when he started having pain in the upper abdomen. The pain increased last night and he came to the emergency room. He denies any history of vomiting. Patient has not had such pains like this before. He denies any alcohol intake but he drank couple of beers recently. He never had a drinking problem. He is a smoker smoking about 4 cigarettes/day patient is retired but he is fairly active. He does have some restriction of activity because of his age and his heart condition. Patient does not give history of heart failure. Patient had a pacemaker inserted for sick sinus syndrome in 2021. Patient has been followed by Dr. Carrillo after the pacemaker insertion. Patient denies history of diabetes but he has hypertension Narrative: Patient is feeling better today and is tolerating diet. Exam Vital Signs Temp Pulse Resp BP Pulse Ox O2 Del Method O2 Flow Rate 97.7 F 61 17 129/73 97 Nasal Cannula 1 07/07/25 08:00 07/07/25 10:28 07/07/25 10:28 07/07/25 08:00 07/07/25 10:28 07/07/25 08:00 07/07/25 08:00 His vital signs are normal Routine Abdominal Exam Comments: Abdominal examination is negative and is draining small amount of blood in the [place] with no bile Results Results: Laboratory Laboratory Narrative: Laboratory results show normal hemoglobin and WBC and liver enzymes Assessment & Plan Assessment Additional comments: Impression: Stable postoperative course following difficult laparoscopic cholecystectomy Plan Plan: Patient could be discharged today. I have given instructions to the daughter about NICOLÁS care and I will see him on Monday, 09 July to remove the drain in my office. PROCEDURES: Procedures Laparoscopic cholecystic
[2025-07-07] MEDS: ACETAMINOPHEN 325 MG TABLET 650 MG PO ×2 (14:13→21:46)
[2025-07-07] MEDS: Milk Of Magnesia Susp 30 ML UDC PO (14:14)
--- NOTE | 2025-07-07 15:04 | XR_ITS ---
Examination: AP chest single view Technique: AP portable upright chest single view Date and time: June 29, 2025, 1908 hrs. Indications: Substernal chest pain today. Findings: Mild enlargement cardiac contour. Moderate vascular congestion. Suspicious for early pneumonia left base retrocardiac Ectatic enlarged thoracic aorta Cardiac leads satisfactory position Impression: Moderate vascular congestion Suspicious for early pneumonia left base retrocardiac, clinical correlation advised
--- NOTE | 2025-07-07 15:04 | EKG_ITS ---
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
[2025-07-07] MEDS: NITROGLYCERIN 0.4 MG SUBL BTL #25 SL (15:05)
--- NOTE | 2025-07-07 15:10 | PC.SS ---
Rounding note: In pain, advancing diet. Possible discharge 07-08-25. Discharge plan: Home
--- NOTE | 2025-07-07 15:12 | XR_ITS ---
Examination: Abdomen AP single view Technique: AP portable supine abdomen, single view Exam date and time: July 07, 2025 1514 hrs. Indications: Abdominal pain beginning 4 days ago. 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
[2025-07-07] MEDS: MORPHINE SULF INJ 10 MG/ML VIAL IVP ×3 (15:16→22:04)
[2025-07-07 15:25] LABS: Basophils # (Auto) 0.0 Thou/mm3 (0.0-0.2); Basophils % (Auto) 0 % (0-2.5); Eosinophils # (Auto) 0.0 Thou/mm3 (0.0-0.5); Eosinophils % (Auto) 0 % (0-10); Hematocrit 35.6 % (41.0-53.0); Hemoglobin 11.5 g/dL (13.5-16.0); Immature Granulocytes Auto 0.08 Thou/mm3 (0.00-0.00); Lymphocytes # (Auto) 1.2 Thou/mm3 (1.0-4.8); Lymphocytes % (Auto) 8 % (10-50); Mean Corpuscular HGB Conc 32.3 g/dl (31.0-37.0); Mean Corpuscular Hemoglobin 31.0 pg (25.0-35.0); Mean Corpuscular Volume 96 fL (80-100); Monocytes # (Auto) 1.0 Thou/mm3 (0.0-0.8); Monocytes % (Auto) 7 % (0-12); Neutrophils # (Auto) 12.3 Thou/mm3 (1.8-7.7); Neutrophils % (Auto) 84 % (37-80); Nucleated Red Blood Cell # 0.00 Thou/mm3 (0.00-0.00); Nucleated Red Blood Cell % 0 /100 WBC (0); Platelet Count 322 Thou/mm3 (140-440); RDW Standard Deviation 46.5 fL (35.1-43.9); Red Blood Count 3.71 Miln/mm3 (4.50-5.90); White Blood Count 14.7 Thou/mm3 (3.8-10.6)
[2025-07-07 15:38] LABS: Alanine Aminotransferase 29 U/L (10-49); Albumin, Serum 3.5 gm/dL (3.4-4.8); Albumin/Globulin Ratio 1.6 (1.2-2.2); Alkaline Phosphatase 229 U/L (46-116); Anion Gap 9 (7-16); Aspartate Amino Transferase 34 U/L (0-34); BUN/Creatinine Ratio 14 Ratio (12-20); Bilirubin,Total 0.4 mg/dL (0.3-1.2); Blood Urea Nitrogen 14 mg/dL (9-23); Calcium 9.1 mg/dL (8.3-10.6); Calcium (Corrected) 9.5 mg/dL (8.5-10.1); Carbon Dioxide 26.0 mMol/L (20.0-31.0); Chloride 105 mMol/L (98-107); Creatinine (Component) 1.0 mg/dL (0.6-1.3); Estimated Creatinine Clearance 67.5 mL/min (>60); Globulin 2.2 gm/dL (2.3-3.5); Glucose 177 mg/dL (74-106); Osmolality,Calculated 283 (275-295); Potassium 4.0 mMol/L (3.4-5.1); Sodium 140 mMol/L (136-145); Total Protein 5.7 gm/dL (5.7-8.2); Troponin I < 0.002 ng/mL (0.0-0.045); eGFR > 60 See Note
[2025-07-07] MEDS: MAGNESIUM OXIDE 400 MG TABLET PO (16:11)
[2025-07-07] MEDS: SUCRALFATE 1 GM TABLET PO (16:11)
[2025-07-07] MEDS: MG HYD/AL HYD/SIME (Maalox Reg) SUSP 30 ML UDC PO (16:11)
--- NOTE | 2025-07-07 16:50 | EVENTNT_ITS ---
Documentation for date of: 07/07/25 Event Note Event Note: Patient had a rapid response called this afternoon, due to chest/epigastric pain, not relieved with Nitro. Mild TTP in epigastric and RUQ noted. EKG was done, did not show ST elevation, showed right bundle branch and changes similar to previous readings. Troponin was negative, rest of labs wnl. Patient was started on low fiber diet, started having pain after he had his meal. Chest x- ray obtained only showed vascular congestion. Abdominal x-ray is concerning for ileus. We will discontinue his low fiber diet and put him back on clear liquid diet if worsen with close monitoring for abdominal pain, nausea, vomiting and b owel movement. Patient remained hemodynamically stable with stable vital signs.
[2025-07-08] VITALS (8 sets, daily range): BP systolic 124–154; BP diastolic 58–80; PULSE 61–76; RESP 16–97; TEMP 36.1–36.9; O2SAT 94–97; BMI 26.6
[2025-07-08] MEDS: RINGERS LACTATED 1000 ML 1,000 ML 120 ML IV ×2 (03:01→12:26)
[2025-07-08 05:34] LABS: Basophils # (Auto) 0.0 Thou/mm3 (0.0-0.2); Basophils % (Auto) 0 % (0-2.5); Eosinophils # (Auto) 0.5 Thou/mm3 (0.0-0.5); Eosinophils % (Auto) 4 % (0-10); Hematocrit 35.1 % (41.0-53.0); Hemoglobin 11.2 g/dL (13.5-16.0); Immature Granulocytes Auto 0.06 Thou/mm3 (0.00-0.00); Lymphocytes # (Auto) 1.2 Thou/mm3 (1.0-4.8); Lymphocytes % (Auto) 10 % (10-50); Mean Corpuscular HGB Conc 31.9 g/dl (31.0-37.0); Mean Corpuscular Hemoglobin 30.6 pg (25.0-35.0); Mean Corpuscular Volume 96 fL (80-100); Monocytes # (Auto) 1.0 Thou/mm3 (0.0-0.8); Monocytes % (Auto) 9 % (0-12); Neutrophils # (Auto) 9.2 Thou/mm3 (1.8-7.7); Neutrophils % (Auto) 77 % (37-80); Nucleated Red Blood Cell # 0.00 Thou/mm3 (0.00-0.00); Nucleated Red Blood Cell % 0 /100 WBC (0); Platelet Count 312 Thou/mm3 (140-440); RDW Standard Deviation 46.7 fL (35.1-43.9); Red Blood Count 3.66 Miln/mm3 (4.50-5.90); White Blood Count 12.0 Thou/mm3 (3.8-10.6)
[2025-07-08 06:19] LABS: Alanine Aminotransferase 23 U/L (10-49); Albumin, Serum 3.1 gm/dL (3.4-4.8); Albumin/Globulin Ratio 1.6 (1.2-2.2); Alkaline Phosphatase 184 U/L (46-116); Anion Gap 7 (7-16); Aspartate Amino Transferase 24 U/L (0-34); BUN/Creatinine Ratio 9 Ratio (12-20); Bilirubin,Total 0.4 mg/dL (0.3-1.2); Blood Urea Nitrogen 9 mg/dL (9-23); Calcium 8.6 mg/dL (8.3-10.6); Calcium (Corrected) 9.3 mg/dL (8.5-10.1); Carbon Dioxide 29.5 mMol/L (20.0-31.0); Chloride 107 mMol/L (98-107); Creatinine (Component) 1.0 mg/dL (0.6-1.3); Estimated Creatinine Clearance 57.0 mL/min (>60); Globulin 2.0 gm/dL (2.3-3.5); Glucose 124 mg/dL (74-106); Magnesium 2.0 mg/dL (1.6-2.6); Osmolality,Calculated 284 (275-295); Phosphorous 2.3 mg/dL (2.4-5.1); Potassium 4.3 mMol/L (3.4-5.1); Sodium 143 mMol/L (136-145); Total Protein 5.1 gm/dL (5.7-8.2); eGFR > 60 See Note
--- NOTE | 2025-07-08 07:25 | ESPR_ITS ---
Documentation for date of: 07/08/25 Subjective Subjective Interval history: Patient s/p cholecystectomy Currently appears stable hemodynamically Exam Vital Signs Temp Pulse Resp BP Pulse Ox O2 Del Method O2 Flow Rate 97.4 F 65 16 126/65 96 Nasal Cannula 2 07/08/25 04:00 07/08/25 04:00 07/08/25 04:00 07/08/25 04:00 07/08/25 04:00 07/08/25 04:00 07/08/25 04:00 Routine HEENT Exam Head: Present normocephalic and atraumatic Eye: Present EOMI and PERRL ENT: Present mucous membranes moist Routine Neck Exam Neck: Present supple and trachea midline Routine Respiratory Exam Respiratory: Present chest non-tender, lungs clear, normal breath sounds and no resp distress Routine Cardiovascular Exam Cardiovascular: Present RRR Routine Extremities Exam Extremities: Present full ROM Routine Skin Exam Skin: Present intact, dry and warm Routine Neurological Exam Neurological: Present alert, oriented X3 and CN II-XII intact Routine Psychiatric Exam Psychiatric: Present normal affect and normal thought process Objective Labs 07/08/25 04:55 07/08/25 04:55 Labs: Laboratory Results - last 24 hr 07/07/25 07/08/25 15:04 04:55 WBC 14.7 H D 12.0 H RBC 3.71 L 3.66 L Hgb 11.5 L 11.2 L Hct 35.6 L 35.1 L MCV 96 96 MCH 31.0 30.6 MCHC 32.3 31.9 RDW Std Deviation 46.5 H 46.7 H Plt Count 322 D 312 Neut % (Auto) 84 H 77 Lymph % (Auto) 8 L 10 [place] % (Auto) 7 9 Eos % (Auto) 0 4 Baso % (Auto) 0 0 Neut # (Auto) 12.3 H 9.2 H Lymph # (Auto) 1.2 1.2 [place] # (Auto) 1.0 H 1.0 H Eos # (Auto) 0.0 0.5 Baso # (Auto) 0.0 0.0 Immature Gran # (Auto) 0.08 H 0.06 H Absolute Nucleated RBC 0.00 0.00 Immature Gran % 1 H 1 H Nucleated RBC % 0 0 Sodium 140 143 Potassium 4.0 4.3 Chloride 105 107 Carbon Dioxide 26.0 29.5 Anion Gap 9 7 BUN 14 9 Creatinine 1.0 1.0 Estim Creat Clear Calc 67.5 57.0 L eGFR > 60 > 60 BUN/Creatinine Ratio 14 9 L Glucose 177 H 124 H D Calculated Osmolality 283 284 Calcium 9.1 8.6 Corrected Calcium 9.5 9.3 Phosphorus 2.3 L Magnesium 2.0 Total Bilirubin 0.4 0.4 AST 34 24 ALT 29 23 Alkaline Phosphatase 229 H 184 H D Troponin I < 0.002 Total Protein 5.7 5.1 L Albumin 3.5 3.1 L Globulin 2.2 L 2.0 L Albumin/Globulin Ratio 1.6 1.6 Assessment & Plan A&P Narrative Status post cholecystomy Continue postop care Time Spent With Patient Time: Total time spent is greater than 50% in coordination of care (as documented) at patient's floor/unit and/or counseling patient:
[2025-07-08] MEDS: DOCUSATE SOD 100 MG CAPSULE PO (08:50)
[2025-07-08] MEDS: FOLIC ACID 1 MG TABLET PO (08:51)
[2025-07-08] MEDS: PANTOPRAZOLE 40 MG TABLET PO ×2 (08:51→20:49)
[2025-07-08] MEDS: NAPH,KPH MBDB 1 PACKET (1.5 GM) PO (08:55)
[2025-07-08] MEDS: HYDROcodone/APAP 5/325 TABLET 1 TAB PO ×3 (09:45→20:50)
--- NOTE | 2025-07-08 10:15 | PC.NURSE ---
Dr. Mclean at bedside to remove vel drain at this time. Pt tolerated well.
--- NOTE | 2025-07-08 10:32 | PC.SS ---
SS follow up note Advancing diet, patient need to be able to tolerate before discharging home.
[2025-07-08] MEDS: BISMUTH SUBSALICYL 1 TABLET (Pepto-Bismol) 2 TAB PO ×2 (12:28→20:50)
--- NOTE | 2025-07-08 13:05 | ESPR_ITS ---
<Statement entered by Yecenia Kessler MD - 07/08/25 17:18> Patient seen and examined at bedside. No acute overnight events reported other than patient receiving morphine 1 mg x 3 since possible response was called at noon. Patient continues to express epigastric pain status post solid diet. Will transition patient from IV morphine to p.o. [place] and see if patient tolerates. NICOLÁS drain was also removed by Dr. Mclean, surgery today. Anticipate discharge in 24 to 48 hours. I discussed with and supervised the international recruiter physician who took care of this patient. I personally saw and examined the patient and discussed the assessment and plan with the entire medicine team, including my attending Dr. Weiss, I agree with most of the assessment and plan as documented below Yecenia Kessler M.D. PGY-3 Disclaimer: Despite multiple revisions, due to the dictation software being used, the document bellow may not be free of grammatical errors including phonetic/typographic errors. However, this does not deter from our commitment to providing health care in the patient's best interest in mind. <Statement entered by Ann Mendieta MD - 07/08/25 17:02> Note reviewed, I agree with most of its contents and agree with the patient's care as documented by Dr. Varghese. Patient examined at bedside. No events overnight. Complains of abdominal pain/epigastric pain everytime he has food intake. Pain is 7/10 but resides when only taking in liquids. Patient endorses good bowel movement this morning. He denies any chest pain or shortness of breath since his rapid response yesterday. Vitals are stable, electrolytes were repleted. Continue PO norco in preparation for discharge. If pain becomes untolerable, consider IV morphine 1 mg x1. NICOLÁS drain was removed today by Dr. Mclean. Continue ambulation. Revert to liquid diet and attempt advancement slowly again. The patient's management plan was discussed with my attending physician Dr. Weiss. Ann Mendieta, PGY-2 Documentation for date of: 07/08/25 Subjective Subjective Interval history: 07/08/25: No acute events overnight. Vital sigens remain stable. Patient is afebrile. Patient was evaluated and examined at bedside. Patient reports improvement in his abdominal pain and denies any nausea or emesis. Patient states that he had one bowel movement last night and one large bowel movement this morning. Patient has been tolerating clear liquid diet well. NICOLÁS drain was removed by general surgery this morning as well. Exam Vital Signs Temp Pulse Resp BP Pulse Ox O2 Del Method O2 Flow Rate 98.1 F 68 22 H 137/79 H 96 Room Air 2 07/08/25 12:00 07/08/25 12:00 07/08/25 12:00 07/08/25 12:00 07/08/25 12:07/08/25 12:07/08/25 11:45 Narrative Exam General: 80 year-old appearing male in no acute distress, good hygiene, Urdu speaking HEENT: NCAT, moist oral mucosa, external ear and nose without deformities Neck: No thyromegaly, trachea midline CV: RRR with S1 and S2, no murmurs or gallops Resp: CTAB, no wheezing, rhonchi, in no respiratory distress Ext: no pretibial edema Abdomen: soft with mild tenderness to palpationin RUQ and epigastric region without any rigidity or peritinic signs. Lap sites are clean, dry, and intact. : No suprapubic tenderness noted. Psych: alert and oriented x4. good affect Objective Labs 07/09/25 04:42 07/09/25 04:42 Labs: Laboratory Results - last 24 hr 07/07/25 07/08/25 15:04 04:55 WBC 14.7 H D 12.0 H RBC 3.71 L 3.66 L Hgb 11.5 L 11.2 L Hct 35.6 L 35.1 L MCV 96 96 MCH 31.0 30.6 MCHC 32.3 31.9 RDW Std Deviation 46.5 H 46.7 H Plt Count 322 D 312 Neut % (Auto) 84 H 77 Lymph % (Auto) 8 L 10 [place]hing % (Auto) 7 9 Eos % (Auto) 0 4 Baso % (Auto) 0 0 Neut # (Auto) 12.3 H 9.2 H Lymph # (Auto) 1.2 1.2 Pershing # (Auto) 1.0 H 1.0 H Eos # (Auto) 0.0 0.5 Baso # (Auto) 0.0 0.0 Immature Gran # (Auto) 0.08 H 0.06 H Absolute Nucleated RBC 0.00 0.00 Immature Gran % 1 H 1 H Nucleated RBC % 0 0 Sodium 140 143 Potassium 4.0 4.3 Chloride 105 107 Carbon Dioxide 26.0 29.5 Anion Gap 9 7 BUN 14 9 Creatinine 1.0 1.0 Estim Creat Clear Calc 67.5 57.0 L eGFR > 60 > 60 BUN/Creatinine Ratio 14 9 L Glucose 177 H 124 H D Calculated Osmolality 283 284 Calcium 9.1 8.6 Corrected Calcium 9.5 9.3 Phosphorus 2.3 L Magnesium 2.0 Total Bilirubin 0.4 0.4 AST 34 24 ALT 29 23 Alkaline Phosphatase 229 H 184 H D Troponin I < 0.002 Total Protein 5.7 5.1 L Albumin 3.5 3.1 L Globulin 2.2 L 2.0 L Albumin/Globulin Ratio 1.6 1.6 Quality Measures Quality Measures none Advance care planning discussed with:: patient Assessment & Plan Assessment Current Active Medications: Generic Name Dose Route Start Last Admin Trade Name Freq PRN Reason Stop Dose Admin Acetaminophen 650 mg 07/05/25 16:22 Acetaminophen 325 Mg Tablet PO 08/04/25 16:21 Q6H PRN Fever >101.5 Acetaminophen 650 mg 07/07/25 03:28 07/07/25 21:46 Acetaminophen 325 Mg Tablet PO 08/04/25 16:21 650 mg Q6H PRN Administration Pain Scale 1-5 Hydrocodone Bitart/Acetaminophen 1 tab 07/08/25 09:25 07/08/25 09:45 Hydrocodone/Apap 5/325 Tablet PO 07/13/25 09:24 1 tab Q4HR PRN Administration Pain 6-10 Azathioprine 50 mg 07/06/25 09:00 07/08/25 08:50 Azathioprine 50 Mg Tablet PO 08/05/25 08:59 50 mg QDAY HUGO Administration Bismuth Subsalicylate 2 tab 07/05/25 17:15 07/08/25 12:28 Bismuth Subsalicyl 1 Tablet (Pepto-Bismol) PO 08/04/25 17:14 2 tab QID HUGO Administration Docusate Sodium 100 mg 07/05/25 16:30 07/08/25 08:50 Docusate Sod 100 Mg Capsule PO 08/04/25 16:29 100 mg QDAY HUGO Administration Protocol Folic Acid 1 mg 07/06/25 09:00 07/08/25 08:51 Folic Acid 1 Mg Tablet PO 08/05/25 08:59 1 mg QDAY HUGO Administration Lactated Ringer's 1,000 mls @ 120 mls/hr 07/05/25 16:30 07/08/25 12:26 Lactated Ringers IV 08/04/25 16:29 120 mls/hr .Q8H20M HUGO Administration Metronidazole 500 mg 07/05/25 21:00 07/08/25 12:27 Metronidazole 250 Mg Tablet PO 07/12/25 20:59 500 mg QID HUGO Administration Morphine Sulfate 1 mg 07/07/25 16:15 07/07/25 22:04 Morphine Sulf Inj 10 Mg/Ml Vial IVP 07/12/25 03:27 1 mg Q3HR PRN Administration Pain 6-10 Ondansetron HCl 4 mg 07/05/25 16:22 Ondansetron Inj 2 Mg/Ml Inj 2 Ml IVP 08/04/25 16:21 Q6H PRN NAUSEA OR VOMITING Protocol Pantoprazole Sodium 40 mg 07/05/25 17:15 07/08/25 08:51 Pantoprazole 40 Mg Tablet PO 08/04/25 17:14 40 mg Q12HR HUGO Administration Sennosides 1 tab 07/05/25 16:30 07/08/25 08:51 Senna Tablet PO 08/04/25 16:29 1 tab QDAY HUGO Administration Protocol Sulfasalazine 500 mg 07/06/25 09:00 07/08/25 08:51 Sulfasalazine 500 Mg Tablet PO 08/05/25 08:59 500 mg BID HUGO Administration Tetracycline HCl 500 mg 07/05/25 17:00 07/08/25 12:27 Tetracycline 250 Mg Capsule PO 07/12/25 16:59 500 mg QID HUGO Administration Plan 80M with PMH of HTN, s/p pacemaker for symptomatic bradycardia, recently diagnosed with H. Pylory infection and IBD presenting with worsening generalized abdominal pain x3 days and constipation x4 days, admitted for management of cholecystitis and pancreatitis. ED course: bolus IVF, rocephin and flagyl #Acute Calculus Cholecystitis s/p lap natanael #Acute Gallstone Pancreatitis (improved) #Abdominal pain (resolved) #H.Pylori Infection Worsening abd pain x3 days with constipation x4 days. Denied nausea, emesis, hematochezia. Recent EGD biopsy positive for H. Pylori infection. Patient has not started therapy yet. Patient is afebrile with stable vital signs. On admission: leukocytosis of 15, T. Bili of 0.6, Alk phos of 171, TGA of 91, Ast 12, Alt 13, Lipase 1411. CT and RUQ US significant for cholelithiasis, acute cholecystitis and acute pancreatitis without pseudocyst. MRCP reveals no signs of choledocholithiasis. Surgery was consulted who recommended non-operative management with Iv Abx and IVF initially until improvement of pancreatitis. Patient is now POD#2 from lap natanael. Passing flatus and has had 2 bowel movements. Plan: - Continue quadruple therapy for H. Pylory infection: Flagyl, Tetracycline, bismuth subsalicylate, and protonix (07/05/25-) - Continue IVF LR maintenance at 120 - Patient is okay for d/c from general surgery standpoint - Advance diet to low fiber and low fat - Pain control with Tyelnol and morphine - Scheduled Senna and docusate - CTM CBC, CMP #UTI Patient reported dysuria, with suprapubic tenderness one exam. UA is positive for leukocyte esterase and WBC. urine culture negative Plan: - Antibiotics as above #Early left base Pneumonia CT shows early left base pneumonia however CXR negative. Low concern for pneumonia as this might be due to atelactasis. Patient is asymptomatic with normal physical exam. Plan: - Antibiotics as above should have coverage for any potential underlying pneumonia #IBD Recently diagnosed via colonoscopy about a month ago. Patient sees Dr. Junior. Patient is unaware of the type. Patient was started on sulfasalazine and azathioprine a month ago by GI. Currently in no flare. Plan: - Continue home sulfasalazine, azathiprine, and folic acid #Hypertension Chronic. Managed with medication. Plan: - Held home lisinopril given soft BP #s/p pacemaker for symptomatic bradycardia Patient is currently stable and asymtomatic. Plan: - CTM Health Maintenance: Dispo: admit to tele DVT prophylaxis: SCDs GI prophylaxis: Protonix BID Code status: Full code Diet: Low fiber Plan of care discussed with attending Dr. Weiss and senior residents Dr. Mendieta and Dr. Kessler. Ney Varghese DO PGY1 Attending Provider Attestation/Addendum I have examined the patient, reviewed labs and imaging findings, discussed the case with the resident(s), and reviewed entered orders. I agree with the plan of care as outlined in this note, with these additional summaries/recommendations: Patient seen at bedside. No acute overnight events. He currently reports his abdominal pain is controlled. Patient is status postcholecystectomy. Patient had NICOLÁS drain removed this morning by general surgery. Patient had rapid response yesterday for abdominal pain after eating. We will advance patient's diet today and monitor how he tolerates. If patient tolerates diet then anticipate discharge in the next 24 to 48 hours. Continue antibiotics for H. pylori. Continue azathioprine and sulfasalazine for IBD. Continue pain management as needed. Patient updated on the plan and in agreement. All questions answered to satisfaction. Please see residents note for additional details and management. Dr. Isela MD
[2025-07-08] MEDS: SIMETHICONE 80 MG CHEW PO (14:51)
[2025-07-08] MEDS: MORPHINE SULF INJ 10 MG/ML VIAL IVP (16:16)
[2025-07-08] MEDS: MG HYD/AL HYD/SIME (Maalox Reg) SUSP 30 ML UDC PO (18:29)
[2025-07-08] MEDS: Milk Of Magnesia Susp 30 ML UDC PO (18:29)
[2025-07-08] MEDS: SUCRALFATE 1 GM TABLET PO (18:30)
[2025-07-09] VITALS (7 sets, daily range): BP systolic 133–150; BP diastolic 75–84; PULSE 67–100; RESP 15–95; TEMP 36.2–36.8; O2SAT 93–97; BMI 26.5
[2025-07-09] MEDS: BISMUTH SUBSALICYL 1 TABLET (Pepto-Bismol) 2 TAB PO ×2 (05:23→11:19)
[2025-07-09 06:03] LABS: Basophils # (Auto) 0.0 Thou/mm3 (0.0-0.2); Basophils % (Auto) 0 % (0-2.5); Eosinophils # (Auto) 0.5 Thou/mm3 (0.0-0.5); Eosinophils % (Auto) 4 % (0-10); Hematocrit 36.7 % (41.0-53.0); Hemoglobin 11.6 g/dL (13.5-16.0); Immature Granulocytes Auto 0.06 Thou/mm3 (0.00-0.00); Lymphocytes # (Auto) 1.2 Thou/mm3 (1.0-4.8); Lymphocytes % (Auto) 10 % (10-50); Mean Corpuscular HGB Conc 31.6 g/dl (31.0-37.0); Mean Corpuscular Hemoglobin 30.3 pg (25.0-35.0); Mean Corpuscular Volume 96 fL (80-100); Monocytes # (Auto) 1.0 Thou/mm3 (0.0-0.8); Monocytes % (Auto) 8 % (0-12); Neutrophils # (Auto) 9.7 Thou/mm3 (1.8-7.7); Neutrophils % (Auto) 78 % (37-80); Nucleated Red Blood Cell # 0.00 Thou/mm3 (0.00-0.00); Nucleated Red Blood Cell % 0 /100 WBC (0); Platelet Count 311 Thou/mm3 (140-440); RDW Standard Deviation 47.1 fL (35.1-43.9); Red Blood Count 3.83 Miln/mm3 (4.50-5.90); White Blood Count 12.5 Thou/mm3 (3.8-10.6)
[2025-07-09 06:34] LABS: Alanine Aminotransferase 25 U/L (10-49); Albumin, Serum 3.3 gm/dL (3.4-4.8); Albumin/Globulin Ratio 1.4 (1.2-2.2); Alkaline Phosphatase 191 U/L (46-116); Anion Gap 10 (7-16); Aspartate Amino Transferase 25 U/L (0-34); BUN/Creatinine Ratio 11 Ratio (12-20); Bilirubin,Total 0.5 mg/dL (0.3-1.2); Blood Urea Nitrogen 9 mg/dL (9-23); Calcium 9.1 mg/dL (8.3-10.6); Calcium (Corrected) 9.7 mg/dL (8.5-10.1); Carbon Dioxide 26.9 mMol/L (20.0-31.0); Chloride 104 mMol/L (98-107); Creatinine (Component) 0.8 mg/dL (0.6-1.3); Estimated Creatinine Clearance 71.3 mL/min (>60); Globulin 2.4 gm/dL (2.3-3.5); Glucose 124 mg/dL (74-106); Magnesium 2.1 mg/dL (1.6-2.6); Osmolality,Calculated 280 (275-295); Phosphorous 2.9 mg/dL (2.4-5.1); Potassium 4.3 mMol/L (3.4-5.1); Sodium 141 mMol/L (136-145); Total Protein 5.7 gm/dL (5.7-8.2); eGFR > 60 See Note
[2025-07-09] MEDS: PANTOPRAZOLE 40 MG TABLET PO (09:15)
[2025-07-09] MEDS: DOCUSATE SOD 100 MG CAPSULE PO (09:15)
[2025-07-09] MEDS: FOLIC ACID 1 MG TABLET PO (09:15)
[2025-07-09] MEDS: SODIUM CHLORIDE 0.9% 1000 ML 1,000 ML 100 ML IV (09:25)
--- NOTE | 2025-07-09 13:51 | ESDS_ITS ---
<Statement entered by Yecenia Kessler MD - 07/09/25 14:15> I discussed with and supervised the international trade analyst physician who took care of this patient. I personally saw and examined the patient and discussed the assessment and plan with the entire medicine team, including my attending Dr. Weiss, I agree with most of the assessment and plan as documented below Yecenia Kessler M.D. PGY-3 Disclaimer: Despite multiple revisions, due to the dictation software being used, the document bellow may not be free of grammatical errors including phonetic/typographic errors. However, this does not deter from our commitment to providing health care in the patient's best interest in mind. Planned Discharge Date 07/09/25 DS: Providers Provider Date of admission: 07/05/25 16:56 Primary care physician: Vineet Rosa PA-C Admitting Provider: Koby Mendez MD Attending Provider on Admission: Taran Weiss MD Consults: 07/05/25 14:48 Consult to General Surgery Stat Comment: Consulting Provider: Krupa Segovia 07/06/25 07:28 Consult to Cardiology Stat Comment: Cardiac clearence for natanael sx Consulting Provider: Christi Carrillo Attending Provider on DC: Dr. Weiss Discharging Provider: Resident [place] Anticipated date of discharge: 07/09/25 DS: Diagnosis Problem List Completed Was Problem List Reviewed/Reconciled?: Yes Hospital Course Hospital Course Hospital course: 80M with PMH of HTN, s/p pacemaker for symptomatic bradycardia, recently diagnosed with H. Pylory infection and IBD presenting with worsening generalized abdominal pain x3 days and constipation x4 days, admitted for management of acute calculus cholecystitis and gallstone pancreatitis. Patient has had worsening abdominal pain x3 days with constipation x4 days without experiencing any nausea, emesis, or hematochezia. Patient's recent EGD biopsy positive for H. Pylori infection and he has not started therapy yet. On admission, patient appeared to be afebrile with stable vital signs, leukocytosis of 15, T. Bili of 0.6, Alk phos of 171, TGA of 91, Ast 12, Alt 13, Lipase 1411. CT and RUQ US significant for cholelithiasis, acute cholecystitis and acute pancreatitis without pseudocyst. MRCP reveals no signs of choledocholithiasis. Surgery was consulted who recommended non-operative management with Iv Abx and IVF initially until improvement of pancreatitis. After improvement of patient's pancreatitis and abdominal pain, he was taken to the OR for lap cholecystectomy which was a difficult operation due to adhesions from the omentum. Patient is now POD#3 from lap natanael. Patient's diet was advanced to low fiber diet which was recommended to be his diet indefinitely by GI prior to his admission. Patient is tolerating his diet, has passed flatus and has had bowel movements. Patient's condition improved and is hemodynamically stable with vital signs within normal limits. During his hospitalizations patient was noted to have breakthrough epigastric abdominal pain which were occuring upon eating too much rapidly in the setting of his resolving pancreatitis. In regards to patient's recently diagnosed H. Pylori infection, he has not started the therapy prior to admission. Patient was started on quadruple therapy with tetracycline, flagyl, pepto bismul and PPI inb the hospital. Patient will be discharge with the quadruple therapy to complete a total of 14 day course for eradication of the bacteria. Patient was also noted to have his initial UA positive for leukocyte esterase and WBC and suprapubic tenderness on plapation suspecting UTI. The antibiotic regimen that we placed him also covered for suspected UTI. (Initially Cipro was also added for broader coverage in the setting of acute cholecystitis) Patient's all other medical problems were managed during his hospital stay. Patient is in stable condition for discharge and was advised to follow up with GI, general surgery, and his PCP outaptient within 1 week of hospital discharge. All questions answered and ED return precautions given. #Acute Calculus Cholecystitis s/p lap natanael #Acute Gallstone Pancreatitis (improved) #Abdominal pain (resolved) #H.Pylori Infection #UTI #Early left base Pneumonia #IBD #Hypertension #s/p pacemaker for symptomatic bradycardia Please take your new medications as follows: Bismuth Subsalicylate 2 tabs four times a day until end of day 07/18/25 Metronidazole 500mg four times daily until end of day 07/18/25 Sulfasalazine 500mg twice daily until end of day 07/18/25 Pantoprazole 40mg twice daily until end of day 07/18/25 Please take norco as needed for pain Please follow up with Dr. Mclean, surgery, GI, Dr. Junior, and your PCP in 1 week. Please return to the ED if your symptoms worsen. Plan of care discussed with attending Dr. Weiss and senior resident Dr. Kessler. Ney Varghese DO PGY1 Status at Discharge Functional status at discharge: independent ambulation Overall status at discharge: patient is back to baseline Time Spent with Patient Time attestation: Total time spent providing and/or coordinating discharge services: Time spent: Greater than 30 minutes Exam Vital Signs Temp Pulse Resp BP Pulse Ox O2 Del Method O2 Flow Rate 98.1 F 70 17 144/83 H 96 Room Air 2 07/09/25 07:55 07/09/25 07:55 07/09/25 07:55 07/09/25 07:55 07/09/25 07:55 07/09/25 07:55 07/08/25 11:45 Narrative Exam General: 80 year-old appearing male in no acute distress, good hygiene, Finnish speaking HEENT: NCAT, moist oral mucosa, external ear and nose without deformities Neck: No thyromegaly, trachea midline CV: RRR with S1 and S2, no murmurs or gallops Resp: CTAB, no wheezing, rhonchi, in no respiratory distress Ext: no pretibial edema Abdomen: soft with mild discomfort to palpation RUQ and epigastric region without any rigidity or peritinic signs. Lap sites are clean, dry, and intact. : No suprapubic tenderness noted. Psych: alert and oriented x4. good affect Discharge Plan Plan Patient Disposition: HOME (Self Care) Prescriptions/Referrals Prescriptions/Med Rec: New metronidazole 500 mg tablet 500 mg PO QID 11 Days Qty: 44 0RF pantoprazole 40 mg Tablet,Delayed Release (Dr/Ec) 40 mg PO Q12HR 11 Days Qty: 22 0RF tetracycline 500 mg capsule 500 mg PO QID 11 Days Qty: 44 0RF bismuth subsalicylate [[place] Bismuth] 262 mg Tablet,Chewable 2 tab PO QID 11 Days Qty: 88 0RF hydrocodone-acetaminophen 5-325 mg Tablet 1 tab PO Q12HR MDD 10mg PRN (Reason: Pain 6-10) 3 Days Qty: 6 0RF Continued lisinopril 10 mg Tablet 10 mg PO QDAY azathioprine 50 mg tablet 50 mg PO QDAY sulfasalazine 500 mg tablet 500 mg PO BID folic acid 1 mg tablet 1 mg PO QDAY clonazepam 0.5 mg tablet 0.5 mg PO HS Patient Comments: TAKE 1 TABLET BY MOUTH ONCE DAILY Discontinued trazodone 50 mg tablet 50 mg PO HS Patient Comments: TAKE 1 TABLET BY MOUTH ONCE DAILY AT BEDTIME NEEDED metronidazole 500 mg tablet 500 mg PO BID doxycycline hyclate 100 mg capsule 100 mg PO BID omeprazole 40 mg capsule,delayed release(DR/EC) 40 mg PO .od Referrals: Vineet Rosa PA-C [Primary Care Provider] Tamara Junior MD [Physician, Gastroenterology] Krupa Segovia MD [Physician, General Surgery] Patient/Caregiver Discharge Instructions Other Discharge Activity Instructions:: Please take your new medications as follows: Bismuth Subsalicylate 2 tabs four times a day until end of day 07/18/25 Metronidazole 500mg four times daily until end of day 07/18/25 Sulfasalazine 500mg twice daily until end of day 07/18/25 Pantoprazole 40mg twice daily until end of day 07/18/25 Please take norco as needed for pain Please follow up with Dr. Mclean, surgery, GI, Dr. Junior, and your PCP in 1 week. Please return to the ED if your symptoms worsen. [place] adrian nuevos medicamentos siguiendo los instruciones: Subsalicilato de bismuto: 2 tabletas, cuatro veces al d?a, hasta el final del d?a 07/18/25 Metronidazol: 500 mg, cuatro veces al d?a, hasta el final del d?a 07/18/25 Sulfasalazina: 500 mg, dos veces al d?a, hasta el final del d?a 07/18/25 Pantoprazol: 40 mg, dos veces al d?a, hasta el final del d?a 07/18/25 [place] necesario para el dolor. Consulte con el Dr. Mclean, el william, el gastroenter?logo, el Dr. Junior y garrido m?dico de cabecera en denis semana. Regrese a urgencias si adrian s?ntomas empeoran. Education Materials: Cholecystectomy, What Is Pneumonia?, Pancreatitis Acute Dc, When You Have Pneumonia, Preventing Surgical Site Infections Print Language: Finnish Stand Alone Forms: Paulette Award Info., Patient Portal Info Letter Discharge Order Discharge Orders: Discharge (Routine); Ordered 07/09/25 Ordered By: Yecenia Kessler Quality Discharge Quality Measures VTE prophylaxis MD Attestestation MD Attestation I have examined the patient, reviewed labs and imaging findings, discussed the case with the resident(s), and reviewed entered orders. I agree with the plan of care as outlined in this note. Time Spent: [address] Isela MD
--- NOTE | 2025-07-09 14:07 | PD.IMPROG ---
Documentation for date of: 07/09/25 Subjective Subjective Interval history: Patient had postop chest pain However all troponins are negative EKG is unremarkable Exam Vital Signs Temp Pulse Resp BP Pulse Ox O2 Del Method O2 Flow Rate 98.1 F 70 17 144/83 H 96 Room Air 2 07/09/25 07:55 07/09/25 07:55 07/09/25 07:55 07/09/25 07:55 07/09/25 07:55 07/09/25 07:55 07/08/25 11:45 Routine HEENT Exam Head: Present normocephalic and atraumatic Eye: Present EOMI and PERRL ENT: Present mucous membranes moist Routine Neck Exam Neck: Present supple and trachea midline Routine Respiratory Exam Respiratory: Present chest non-tender, lungs clear, normal breath sounds and no resp distress Routine Cardiovascular Exam Cardiovascular: Present RRR Routine Abdominal Exam Abdominal: Present soft and normoactive bowel sounds Routine Extremities Exam Extremities: Present full ROM Routine Skin Exam Skin: Present intact, dry and warm Routine Neurological Exam Neurological: Present alert, oriented X3 and CN II-XII intact Routine Psychiatric Exam Psychiatric: Present normal affect and normal thought process Objective Labs 07/09/25 04:42 07/09/25 04:42 Labs: Laboratory Results - last 24 hr 07/09/25 04:42 WBC 12.5 H RBC 3.83 L Hgb 11.6 L Hct 36.7 L MCV 96 MCH 30.3 MCHC 31.6 RDW Std Deviation 47.1 H Plt Count 311 Neut % (Auto) 78 Lymph % (Auto) 10 [place] % (Auto) 8 Eos % (Auto) 4 Baso % (Auto) 0 Neut # (Auto) 9.7 H Lymph # (Auto) 1.2 [place] # (Auto) 1.0 H Eos # (Auto) 0.5 Baso # (Auto) 0.0 Immature Gran # (Auto) 0.06 H Absolute Nucleated RBC 0.00 Immature Gran % 1 H Nucleated RBC % 0 Sodium 141 Potassium 4.3 Chloride 104 Carbon Dioxide 26.9 Anion Gap 10 BUN 9 Creatinine 0.8 Estim Creat Clear Calc 71.3 eGFR > 60 BUN/Creatinine Ratio 11 L Glucose 124 H Calculated Osmolality 280 Calcium 9.1 Corrected Calcium 9.7 Phosphorus 2.9 Magnesium 2.1 Total Bilirubin 0.5 AST 25 ALT 25 Alkaline Phosphatase 191 H Total Protein 5.7 Albumin 3.3 L Globulin 2.4 Albumin/Globulin Ratio 1.4 Assessment & Plan A&P Narrative Status post cholecystomy Continue postop care All troponins are negative Time Spent With Patient Time: Total time spent is greater than 50% in coordination of care (as documented) at patient's floor/unit and/or counseling patient:
== END 2025-07-09 14:10 | disposition home or self-care (01) | DRG 417 ==
LOC: SERX 16:51 → SERHOLD 16:58 → S2NX 20:12
PROVIDERS: Family Medicine; Internal Medicine; Physician Assistant; Surgery; Admitting Provider Student in an Organized Health Care Education/Training Program; PCP Student in an Organized Health Care Education/Training Program; Visit Provider Student in an Organized Health Care Education/Training Program
PROC: 0FT44ZZ Resection of Gallbladder, Percutaneous Endoscopic Approach (ICD-10-PCS; CPT 47562; principal; 2025-07-06 16:00)
DX: K80.12 Calculus of gallbladder with acute and chronic cholecystitis without obstruction (principal); J18.9 Pneumonia, unspecified organism; K85.10 Biliary acute pancreatitis without necrosis or infection; N39.0 Urinary tract infection, site not specified; K66.0 Peritoneal adhesions (postprocedural) (postinfection); I10 Essential (primary) hypertension; B96.81 Helicobacter pylori [H. pylori] as the cause of diseases classified elsewhere; F17.210 Nicotine dependence, cigarettes, uncomplicated; Z95.0 Presence of cardiac pacemaker
CPT/HCPCS: 36415; 71045; 74018; 74177; 74181; 76705; 80053; 80061; 80320; 81001; 82150; 83036; 83605; 83690; 83735; 84100; 84443; 84478; 84484; 85025; 87040; 87086; 87635; 87811; 93005; 94664; 96361; 96365; 96366; 96375; 96376; 99285; A4217; A4649; J0131; J0696; J0744; J1100; J1171; J2270; J2405; J2543; J2704; J3010; J3475; J3490; J7030; J7120; J7500; Q9967; A9270; G0480; J1805; J1836

== ENCOUNTER 2025-07-10 23:08 | Emergency (ER) | payer OTHER, SELFPAY ==
--- NOTE | 2025-07-10 23:12 | EKG_ITS ---
[facility] Test Date: 2025-07-10 Pat Name: SAURAV HIDALGO Department: Room: - Gender: Male Vulcanizer: : 1945 Requested By: ED Temporary Provider Order Number: [id number] Reading MD: ED Temporary Provider Measurements Intervals [place] Rate: 82 P: 155 IN: 178 QRS: 2 QRSD: 126 T: -17 QT: 383 QTc: 449 Interpretive Statements ELECTRONIC ATRIAL PACEMAKER RIGHT BUNDLE BRANCH BLOCK [120+ ms QRS DURATION, UPRIGHT V1, 40+ ms S IN I/aVL/V4/V5/V6] Compared to ECG 07/07/2025 15:05:33 No significant changes /store/S0/[id number]
[2025-07-10 23:25] VITALS: BP 147/79; PULSE 69; RESP 18; TEMP 37.1; O2SAT 97; BMI 26.7
--- NOTE | 2025-07-10 23:33 | PD.EDCHEST ---
ED Chest Pain RME/HPI General Chief Complaint: Chest Pain Stated Complaint: CHEST PAIN Time Seen by Provider: 07/10/25 23:36 Arrival date/time: 07/10/25 23:08 RME / HPI RME / HPI narrative: See [facility] for Dr. Lala's HPI documentation. Related Data Home Medications ?Medication ?Instructions ?Recorded ?Confirmed lisinopril 10 mg tablet 10 mg PO QDAY 07/07/22 07/05/25 azathioprine 50 mg tablet 50 mg PO QDAY 06/29/25 07/05/25 folic acid 1 mg tablet 1 mg PO QDAY 06/29/25 07/05/25 sulfasalazine 500 mg tablet 500 mg PO BID 06/29/25 07/05/25 clonazepam 0.5 mg tablet 0.5 mg PO HS 07/05/25 07/05/25 Previous Rx's ?Medication ?Instructions ?Recorded bismuth subsalicylate 262 mg 2 tab PO QID 11 days #88 tabs 07/09/25 chewable tablet ([place] Bismuth) metronidazole 500 mg tablet 500 mg PO QID 11 days #44 tabs 07/09/25 pantoprazole 40 mg tablet,delayed 40 mg PO Q12HR 11 days #22 tabs 07/09/25 release tetracycline 500 mg capsule 500 mg PO QID 11 days #44 caps 07/09/25 albuterol sulfate 90 mcg/actuation 2 puff inhalation Q6H PRN 07/11/25 aerosol inhaler shortness of breath or wheezing #1 unit amoxicillin 875 mg-potassium 1 tab PO BID #20 tabs 07/11/25 clavulanate 125 mg tablet ondansetron 4 mg disintegrating 4 mg PO TID PRN nausea and 07/11/25 tablet vomiting 30 days #10 tabs oxycodone-acetaminophen 5 mg-325 2 tab PO Q6H PRN pain #30 tabs 07/11/25 mg tablet (Percocet) prednisone 20 mg tablet 20 mg PO BID 3 days #6 tabs 07/11/25 Allergies Allergy/AdvReac Type Severity Reaction Status Date / Time No Known Allergies Allergy Verified 06/29/25 20:15 Review of Systems Review of Systems Systems Reviewed: All systems reviewed, normal except as documented ED Exam Narrative Physical exam: See [facility] for Dr. Lala's physical exam documentation. Course Course Course Narrative: CXR is ordered for determining the etiology of chest pain. Quality Measures none Orders Category Date Time Status Bedside COVID-19 Antigen Test NOW Care 07/10/25 23:48 Completed Bedside Influenza A&B Antigen Test NOW Care 07/10/25 23:[address] Screening NOW Care 07/10/25 23:49 Completed EKG (ED ONLY) *Do not use* NOW Care 07/10/25 23:12 Completed Saline [Insert IV] NOW Care 07/10/25 23:48 Completed Referral Respiratory Therapy Stat Cons 07/11/25 03:[address] abdomen pelvis w con Stat Exams 07/10/25 23:[address] angio chest Stat Exams 07/10/25 23:49 Completed EKG (ED Only) Stat Exams 07/10/25 23:12 Draft XR chest 1V portable Stat Exams 07/10/25 23:49 Completed Amylase Stat Lab 07/10/25 23:59 Completed BNP [B-Type Natriuretic Peptide] Stat Lab 07/10/25 23:59 Completed Bilirubin,Direct Stat Lab 07/10/25 23:59 Completed Blood Culture (Lab) Stat Lab 07/11/25 01:21 Ordered CBC Stat Lab 07/10/25 23:59 Completed CMP [Comprehensive Metabolic Panel] Stat Lab 07/10/25 23:59 Completed CRP [C-Reactive Protein] Stat Lab 07/11/25 01:21 Completed D-Dimer Stat Lab 07/10/25 23:59 Completed ESR [Sed Rate (ESR)] Stat Lab 07/11/25 01:21 Completed Lactate (Lactic Acid) Stat Lab 07/11/25 01:21 Completed Lipase Stat Lab 07/10/25 23:59 Completed Magnesium Stat Lab 07/10/25 23:59 Completed Procalcitonin Stat Lab 07/11/25 01:21 Completed TSH [Thyroid Stimulating Hormone] Stat Lab 07/10/25 23:59 Completed Troponin I Stat Lab 07/10/25 23:59 Completed Albuterol/Ipratr Rt Stefania [Duoneb Rt Stefania] Med 07/11/25 03:31 Discontinued 3 ml INH X1 ONE Cefepime Inj [Maxipime Inj] 2 gm Med 07/11/25 01:00 Discontinued SODIUM CHLORIDE 0.9% (Popper) [Ns 0.9% (P)] 50 ml IV X1 MethylPREDNISolone.* [SoluMEDROL Inj] Med 07/11/25 03:31 Discontinued 125 mg IVP X1 ONE Morphine* Inj Med 07/10/25 23:48 Discontinued 4 mg IV X1 ONE Morphine* Inj Med 07/11/25 03:30 Discontinued 6 mg IV X1 ONE Ondansetron Inj [Zofran Inj] Med 07/10/25 23:48 Discontinued 4 mg IVP X1 ONE Sodium Chloride 0.9% 1000 ml [Ns] 1,000 ml Med 07/10/25 23:48 Discontinued IV 999 mls/hr Vancomycin Inj Med 07/11/25 01:47 Discontinued 2,000 mg .ROUTE .STK-MED ONE Vancomycin Inj 2,000 mg Med 07/11/25 01:00 Discontinued Sodium Chloride 0.9% 500 ml [Ns] 500 ml IV X1 Vital Signs Vital signs: Vital Signs Temperature 98.7 F 07/10/25 23:25 Pulse Rate 69 07/10/25 23:25 Respiratory Rate 18 07/10/25 23:25 Blood Pressure 147/79 H 07/10/25 23:25 Pulse Oximetry (%) 97 07/10/25 23:25 Oxygen Delivery Method Room Air 07/10/25 23:25 Chest Pain MDM Narrative MDM Narrative:: This section includes all my notes and documentations, including HPI, PE, and ED course. Joe Lala MD HPI: 80yo male here with chest pain since yesterday. Pain has been getting progressively worse throughout today. No shortness of breath. No other complaints reported. ROS: All negative except as documented in HPI. Physical Exam: General: Alert and oriented. Cough noted. Eyes: Conjunctivae and lids clear. ENT: No nasal congestion. Neck: Supple. Heart: RRR. Lungs: No respiratory distress. Good air movement. No rhonchi, wheezing, rales. Abdomen: Soft with equivocal mild epigastric tenderness. Normal bowel sounds. No distension. No rebound or guarding. Back: No CVA tenderness. Skin: Warm and dry. Neuro: Alert and oriented X 3. I reviewed all diagnostic test results. My interpretation of the EKG is paced rhythm with no ST-T changes. My interpretation of the chest x-ray is infiltrates. My review of the CT abdomen pelvis report is pancreatitis. My review of the CT angio chest report is pneumonia. Blood tests remarkable for WBC 15.0, ESR 66, D-Dimer 1870, Glucose 170, CRP 12.6, Lipase 493. At this point, diagnoses include: Pneumonia Pancreatitis Treatment here included: Duoneb Vancomycin Solumedrol Morphine IV fluid Cefepime Morphine Zofran Significant improvement noted. Recommended a trial of outpatient treatment. Based on my best medical judgment, made decision no further evaluation or treatment indicated at this time. Patient understands and agrees to the discharge instructions customized and printed, see below. Discharge instructions from Dr. Lala: 1. After evaluation, you have pneumonia and pancreatitis. See attached handouts. 2. For pneumonia: --No physical exertion for 3 days to help rest the lungs. --No smoking or exposure to smoking or pets or dust or humidity. --Augmentin to kill the germs causing the pneumonia. --Prednisone to help decrease the swelling in the lungs. --Albuterol 2 puffs every 4-6 hours today to help keep the airways open. Then as needed for cough or shortness of breath. 3. For pancreatitis: --Clear liquid diet for 24 hours then advance diet as tolerated. --Zofran for nausea/vomiting. For good hydration, increase oral fluid and maintain clear urine. If dark or yellow, increase oral fluid. --Percocet for severe pain. 4. See a private doctor on 07/14/2025 for recheck. Ask to review all test results and official radiology reports, to make sure you receive all necessary follow-ups and monitoring. Ask for help until you are completely better. 5. Seek immediate medical care with worsening or with any concerns. Joe Lala MD Patient data External records reviewed:: 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 Joe Lala MD) Lab and/or radiology exams considered but not ordered:: none Interpretation Summary: I reviewed all diagnostic test results. My interpretation of the EKG is paced rhythm with no ST-T changes. My interpretation of the chest x-ray is infiltrates. My review of the CT abdomen pelvis report is pancreatitis. My review of the CT angio chest report is pneumonia. Blood tests remarkable for WBC 15.0, ESR 66, D-Dimer 1870, Glucose 170, CRP 12.6, Lipase 493. Medications / Prescriptions Medications or Prescriptions considered but not ordered:: none Medication administrations:: Medication Administration History Discontinued Medications Albuterol/Ipratropium (Albuterol/Ipratropium (Duoneb) Rt Stefania 3 Ml Nebu) 3 ml INH X1 ONE Stop: 07/11/25 03:32 Last Admin: 07/11/25 04:09 Dose: 3 ml Documented By: MISAEL Sodium Chloride (Ns) 1,000 mls @ 999 mls/hr IV .Q1H1M ONE Stop: 07/11/25 00:48 Last Infusion: 07/11/25 01:50 Dose: Infused Documented By: Admin: 07/11/25 00:03 Dose: 999 mls/hr Documented By: EMERITA Cefepime HCl 2 gm/ Sodium (Chloride) 50 mls @ 100 mls/hr IV X1 ONE Stop: 07/11/25 01:29 Last Infusion: 07/11/25 02:17 Dose: Infused Documented By: Admin: 07/11/25 01:33 Dose: 100 mls/hr Documented By: EMERITA Vancomycin HCl 2,000 mg/ (Sodium Chloride) 500 mls @ 150 mls/hr IV X1 ONE Stop: 07/11/25 04:19 Last Infusion: 07/11/25 05:48 Dose: Infused Documented By: Admin: 07/11/25 02:16 Dose: 150 mls/hr Documented By: DUARTE Methylprednisolone Sodium Succinate (Methylprednisolone Sod Succ 62.5 Mg/Ml 2ml Vial) 125 mg IVP X1 ONE Stop: 07/11/25 03:32 Last Admin: 07/11/25 03:57 Dose: 125 mg Documented By: EMERITA Morphine Sulfate (Morphine Sulf Inj 4 Mg/Ml Vial) 4 mg IV X1 ONE Stop: 07/10/25 23:49 Last Admin: 07/11/25 00:02 Dose: 4 mg Documented By: EMERITA Morphine Sulfate (Morphine Sulf Inj 4 Mg/Ml Vial) 6 mg IV X1 ONE Stop: 07/11/25 03:31 Last Admin: 07/11/25 03:57 Dose: 6 mg Documented By: EMERITA Ondansetron HCl (Ondansetron Inj 2 Mg/Ml Inj 2 Ml) 4 mg IVP X1 ONE; Protocol Stop: 07/10/25 23:49 Last Admin: 07/11/25 00:03 Dose: 4 mg Documented By: EMERITA Vancomycin HCl (Vancomycin Inj 1,000 Mg Vial) Confirm Administered Dose 2,000 mg .ROUTE .STK-MED ONE Stop: 07/11/25 01:48 Last Admin: 07/11/25 02:17 Dose: Not Given Documented By: DUARTE Non-Admin Reason: Override Medication Duoneb, Vancomycin, Solumedrol, Morphine, IV fluid, Cefepime, Morphine, Zofran Consultations Consultation(s) initiated? (list below): No Diagnosis Chest Pain Differential Diagnosis: pneumothorax, stable angina, unstable angina pectoris, atypical chest pain, st elevation myocardial infarction and costochondritis Most likely diagnosis given after review of the tests above:: Pneumonia, Pancreatitis Admission Indicated Admission indicated?: not indicated Explain why admission is indicated or not indicated:: With significant improvement and no condition needing emergent intervention, there was no indication for admission. Admission Request Was there a request for admission?: No Disposition Plan Disposition Plan: Discharge Discharge Attestation Discharge Attestation: The patient and all family members were given an opportunity to ask questions and understood the discharge instructions. Discharge instructions specifically effects, indications for sooner follow up or return to the emergency department, and the expected course of current diagnosis. Patient condition: Stable Discharge Plan Plan Patient Disposition: HOME (Self Care) Prescriptions/Referrals Prescriptions/Med Rec: New prednisone 20 mg tablet 20 mg PO BID 3 Days Qty: 6 0RF Taper: Prednisone Taper 20 mg DAILY for 2 Days and 0 Hour 10 mg DAILY for 2 Days and 0 Hour 5 mg DAILY for 7 Days and 0 Hour oxycodone-acetaminophen [Percocet] 5-325 mg tablet 2 tab PO Q6H MDD 8 PRN (Reason: pain) Qty: 30 0RF albuterol sulfate 90 mcg/actuation HFA aerosol inhaler 2 puff inhalation Q6H PRN (Reason: shortness of breath or wheezing) Qty: 1 0RF ondansetron 4 mg tablet,disintegrating 4 mg PO TID PRN (Reason: nausea and vomiting) 30 Days Qty: 10 0RF amoxicillin-pot clavulanate 875-125 mg tablet 1 tab PO BID Qty: 20 0RF No Action lisinopril 10 mg Tablet 10 mg PO QDAY azathioprine 50 mg tablet 50 mg PO QDAY sulfasalazine 500 mg tablet 500 mg PO BID folic acid 1 mg tablet 1 mg PO QDAY clonazepam 0.5 mg tablet 0.5 mg PO HS Patient Comments: TAKE 1 TABLET BY MOUTH ONCE DAILY metronidazole 500 mg tablet 500 mg PO QID 11 Days Qty: 44 0RF pantoprazole 40 mg Tablet,Delayed Release (Dr/Ec) 40 mg PO Q12HR 11 Days Qty: 22 0RF tetracycline 500 mg capsule 500 mg PO QID 11 Days Qty: 44 0RF bismuth subsalicylate [[place] Bismuth] 262 mg Tablet,Chewable 2 tab PO QID 11 Days Qty: 88 0RF Referrals: Vineet Rosa PA-C [Primary Care Provider] - In 1 week Problem List Clinical Impression: Pneumonia, Pancreatitis Patient/Caregiver Discharge Instructions Discharge Activity: activity as tolerated Education Materials: ED Pancreatitis, ED Pneumonia (Adult) Additional Instructions: Discharge instructions from Dr. Lala: 1. After evaluation, you have pneumonia and pancreatitis. See attached handouts. 2. For pneumonia: --No physical exertion for 3 days to help rest the lungs. --No smoking or exposure to smoking or pets or dust or humidity. --Augmentin to kill the germs causing the pneumonia. --Prednisone to help decrease the swelling in the lungs. --Albuterol 2 puffs every 4-6 hours today to help keep the airways open. Then as needed for cough or shortness of breath. 3. For pancreatitis: --Clear liquid diet for 24 hours then advance diet as tolerated. --Zofran for nausea/vomiting. For good hydration, increase oral fluid and maintain clear urine. If dark or yellow, increase oral fluid. --Percocet for severe pain. 4. See a private doctor on 07/14/2025 for recheck. Ask to review all test results and official radiology reports, to make sure you receive all necessary follow-ups and monitoring. Ask for help until you are completely better. 5. Seek immediate medical care with worsening or with any concerns. Instrucciones de amisha del Dr. Lala: 1. Despu?s de la evaluaci?n, presenta neumon?a y pancreatitis. Consulte los folletos adjuntos. 2. En juancarlos de neumon?a: -- No realice esfuerzo f?sico iva 3 d?as para ayudar a los pulmones a descansar. -- No fume ni se exponga al humo del tabaco, a mascotas, al polvo ni a la humedad. -- Augmentin para eliminar los g?rmenes que causan la neumon?a. -- Prednisona para ayudar a disminuir la inflamaci?n pulmonar. -- Albuterol: 2 inhalaciones cada 4 a 6 horas hoy para ayudar a mantener las v?as respiratorias abiertas. Posteriormente, seg?n sea necesario, para la tos o la dificultad para respirar. 3. En juancarlos de pancreatitis: -- Dieta l?quida lori iva 24 horas y luego aumente la dieta seg?n la tolerancia. -- Zofran para n?useas y v?mitos. Para denis buena hidrataci?n, aumente la ingesta de l?quidos por v?a oral y mantenga la orina lori. Si la orina es oscura o amarilla, aumente la ingesta de l?quidos por v?a oral. -- Percocet para el dolor intenso. 4. Consulte con un m?dico particular el 06/14/2025 para denis nueva revisi?n. Solicite la revisi?n de todos los resultados de las pruebas y los informes radiol?gicos oficiales para asegurarse de recibir todos los seguimientos y la monitorizaci?n necesarios. Solicite ayuda hasta que se recupere por completo. 5. Busque atenci?n m?dica inmediata si garrido estado empeora o tiene alguna inquietud. Print Language: [place] Island[place] Stand Alone Forms: Paulette Award Info., Patient Portal Info Letter
--- NOTE | 2025-07-10 23:49 | XR_ITS ---
Examination: CTA chest with intravenous contrast 2-D reconstructions 3-D reconstructions, vascular Date and time of exam: July 11, 2025, 0138 hrs. Indications: Chest pain shortness of breath today status post cholecystectomy this week CTDI: vol (mGy) 14.65 DLP: (mGycm) 387 Technique: Multiple axial sections of the thorax have been obtained. 3 mm slice thickness, from below the hemidiaphragms to above the apices of the lungs. Mediastinal and lung density settings have been obtained. 2-D sagittal and coronal reconstructions. 3-D angiographic renderings, 3-D volume renderings, 3D post processing, vascular maximum intensity projections obtained. Contrast administered is 100 cc Isovue-370. Low dose protocols were performed. One or more of the following dose reduction techniques were used; automated exposure control, adjustment of the mA and/or KV according to patient size, use of iterative reconstruction technique. Findings: No thoracic aortic aneurysmal dilatation Pulmonary artery segments are not enlarged No pulmonary artery emboli Pneumonia left base with small left pleural effusion. 8mm noncalcified pulmonary nodule in the lingular segment No pulmonary edema Mild enlargement cardiac contour Impression: Negative for pulmonary artery emboli Pneumonia left base with small left pleural effusion 8mm noncalcified pulmonary nodule in the lingular segment left upper lobe, recommend 6 month follow-up CT chest
--- NOTE | 2025-07-10 23:49 | XR_ITS ---
Examination: CT abdomen with intravenous contrast CT pelvis with intravenous contrast 2-D coronal reconstructions 2-D sagittal reconstructions Date and time of exam:July 11, 2025, 0138 hrs. Indications: Abdominal pain post cholecystectomy this week Comparison: July 05, 2025. CTDI: vol (mGy) 7.21 DLP: (mGycm) 448. Technique: Multiple axial sections of the abdomen and pelvis have been obtained. 64 slice high-resolution scanner used. 3 mm axial sections have been obtained, post intravenous injection 60 cc Isovue-370. 2-D sagittal, coronal reconstructions obtained. Low dose protocols were performed. One or more of the following dose reduction techniques were used; automated exposure control, adjustment of the mA and/or KV according to patient size, use of iterative reconstruction technique. Findings: Atelectasis versus pneumonia left base with small left pleural effusion. Mild/moderate enlargement cardiac contour Liver irregular in contour Minimal fluid air density in the gallbladder fossa, the largest fluid collection 34 mm Mild edema surrounding the pancreas No hydronephrosis Aorta normal size. Diffuse wall thickening involving the colon especially rectosigmoid Urinary bladder intact Mild to moderate prostatomegaly Fat-containing left inguinal hernia Impression: Atelectasis versus pneumonia left base with small left pleural effusion. Primary hepatocellular disease Small air-fluid collection in the gallbladder fossa, advise continued follow-up to exclude early developing abscess Mild diffuse pancreatitis. Diffuse colitis pattern
--- NOTE | 2025-07-10 23:49 | XR_ITS ---
Examination: AP chest single view Technique one AP portable upright chest single view Date and time: July 10, 2025 11:55 PM, comparison 07/07/2025 Indications: Shortness of breath today. Findings: Pneumonia left base Mild prominence left ventricle Cardiac leads satisfactory position. Ectatic thoracic aorta. No pulmonary edema Impression: Significant pneumonia left base
[2025-07-11] MEDS: MORPHINE SULF INJ 4 MG/ML VIAL IV (00:02)
[2025-07-11] MEDS: ONDANSETRON INJ 2 MG/ML INJ 2 ML 4 MG IVP (00:03)
[2025-07-11] MEDS: SODIUM CHLORIDE 0.9% 1000 ML 1,000 ML 999 ML IV (00:03)
[2025-07-11 00:12] LABS: Basophils # (Auto) 0.1 Thou/mm3 (0.0-0.2); Basophils % (Auto) 0 % (0-2.5); Eosinophils # (Auto) 1.0 Thou/mm3 (0.0-0.5); Eosinophils % (Auto) 6 % (0-10); Hematocrit 36.1 % (41.0-53.0); Hemoglobin 12.0 g/dL (13.5-16.0); Immature Granulocytes Auto 0.13 Thou/mm3 (0.00-0.00); Lymphocytes # (Auto) 1.6 Thou/mm3 (1.0-4.8); Lymphocytes % (Auto) 11 % (10-50); Mean Corpuscular HGB Conc 33.2 g/dl (31.0-37.0); Mean Corpuscular Hemoglobin 31.0 pg (25.0-35.0); Mean Corpuscular Volume 93 fL (80-100); Monocytes # (Auto) 1.0 Thou/mm3 (0.0-0.8); Monocytes % (Auto) 7 % (0-12); Neutrophils # (Auto) 11.3 Thou/mm3 (1.8-7.7); Neutrophils % (Auto) 75 % (37-80); Nucleated Red Blood Cell # 0.00 Thou/mm3 (0.00-0.00); Nucleated Red Blood Cell % 0 /100 WBC (0); Platelet Count 360 Thou/mm3 (140-440); RDW Standard Deviation 45.7 fL (35.1-43.9); Red Blood Count 3.87 Miln/mm3 (4.50-5.90); White Blood Count 15.0 Thou/mm3 (3.8-10.6)
[2025-07-11 00:27] VITALS: BP 142/74; PULSE 73; RESP 18; TEMP 36.8; O2SAT 95
[2025-07-11 00:32] LABS: D-Dimer 1870 ng/mL (<600)
[2025-07-11 00:36] LABS: B-Type Natriuretic Peptide 36 pg/mL (0-100)
[2025-07-11 01:23] LABS: Alanine Aminotransferase 17 U/L (10-49); Albumin, Serum 3.5 gm/dL (3.4-4.8); Albumin/Globulin Ratio 1.4 (1.2-2.2); Alkaline Phosphatase 226 U/L (46-116); Anion Gap 10 (7-16); Aspartate Amino Transferase 13 U/L (0-34); BUN/Creatinine Ratio 10 Ratio (12-20); Bilirubin,Direct 0.2 mg/dL (0.0-0.3); Bilirubin,Total 0.4 mg/dL (0.3-1.2); Blood Urea Nitrogen 9 mg/dL (9-23); Calcium 9.1 mg/dL (8.3-10.6); Calcium (Corrected) 9.5 mg/dL (8.5-10.1); Carbon Dioxide 24.7 mMol/L (20.0-31.0); Chloride 103 mMol/L (98-107); Creatinine (Component) 0.9 mg/dL (0.6-1.3); Estimated Creatinine Clearance 63.3 mL/min (>60); Globulin 2.5 gm/dL (2.3-3.5); Glucose 170 mg/dL (74-106); Lipase 493 U/L (12-53); Magnesium 2.2 mg/dL (1.6-2.6); Osmolality,Calculated 278 (275-295); Potassium 3.9 mMol/L (3.4-5.1); Sodium 138 mMol/L (136-145); Thyroid Stimulating Hormone 3.23 uIU/mL (0.55-4.78); Total Protein 6.0 gm/dL (5.7-8.2); Troponin I < 0.002 ng/mL (0.0-0.045); eGFR > 60 See Note
[2025-07-11] MEDS: CEFEPIME INJ 2 GM in SODIUM CHLORIDE 0.9% (Popper) 50 ML IV (01:33)
[2025-07-11 01:35] LABS: Amylase 113 U/L (30-118)
[2025-07-11 01:44] LABS: Lactate (Lactic Acid) 0.8 mMol/L (0.4-2.0)
[2025-07-11 01:54] LABS: Sed Rate (ESR) 66 mm/hr (0-20)
[2025-07-11 02:16] LABS: C-Reactive Protein 12.6 mg/dL (0.0-0.9); Procalcitonin 0.15 ng/ml (0.0-0.49)
[2025-07-11] MEDS: Vancomycin Inj 2,000 MG in SODIUM CHLORIDE 0.9% 500 ML 500 ML 150 MG IV (02:16)
--- NOTE | 2025-07-11 02:43 | PRELIM_ITS ---
CT angiogram of the chest with intravenous contrast (axial sections with sagittal and coronal reformats) July 11, 2025 0138 hours Clinical History: SOB CP Radiation Dose: Total exam DLP 836 mGy/cm Technique:Helical axial sections with sagittal and coronal reformats of the chest were obtained with intravenous contrast. Iterative reconstruction technique was employed to reduce patient radiation exposure. 3D/MIP reconstructed images were also provided. Comparison: No prior study is available for comparison. Findings: There is no filling defect within the pulmonary artery divisions to suggest pulmonary thromboembolism. The mediastinum demonstrates no evidence of mass or lymphadenopathy. The thoracic aorta is unremarkable. There is no pericardial effusion. There is a non-calcified nodule in the left lower lobe, measuring 8 mm, with smooth margin (axial image 52/119). There is a small left pleural effusion with underlying consolidation / atelectasis.No evidence of pneumothorax. Degenerative changes are identified in the spine. Impression: No CT evidence of pulmonary thromboembolism. Small left pleural effusion with underlying consolidation / atelectasis. Non-Calcified nodule in the left lower lobe. Recommend follow up as per Fleischner criteria. Please refer to the report on the abdomen CT submitted separately. Report Electronically Signed By: Luis Jensen 07/11/2025 2:42:52 AM [EST]
--- NOTE | 2025-07-11 02:57 | PRELIM_ITS ---
CT scan of the abdomen and pelvis with intravenous contrast (axial sections with sagittal and coronal reformats) July 11, 2025 0138 hours Clinical History: Abdominal pain after cholecystectomy Comparison: 07/05/2025 Findings: There is new ground-glass opacity in the left lower lobe. Bibasilar dependent atelectasis is present. New small left pleural effusion is noted. The pancreas is diffuse edematous with extensive peripancreatic fat stranding and trace free fluid, unchanged since the prior examination. Persistent reactive inflammatory changes of the adjacent stomach and duodenum is noted. Status post cholecystectomy with remaining focal nonenhancing collection with small air loculi in the gallbladder fossa. Surgical angel are seen in the gallbladder fossa. Bilateral prominent renal pelves are again noted. The kidneys otherwise are unremarkable. No evidence of renal/ureteric calculus or hydroureteronephrosis. The liver, spleen and adrenals are unremarkable. No evidence of bowel obstruction. The appendix is within normal limits (images [id number], series 4). There is mild diffuse thickening versus underdistention of the descending and sigmoid colon with surrounding hyperemia. In the appropriate clinical setting, the possibility of mild colitis cannot be excluded. Recommend clinical correlation. There is no mesenteric or retroperitoneal adenopathy. The urinary bladder redemonstrates mild diffuse wall thickening with subtle perivesical fat stranding. There are multiple colonic diverticula without evidence of diverticulitis. Mild to moderate prostatomegaly. There is no free fluid or free air. Mild degenerative changes are identified in the spine. Stable small fat-containing bilateral inguinal hernias are present. Mild postoperative changes are seen in the midline anterior abdominal wall. Impression: 1. Stable acute pancreatitis with adjacent reactive inflammatory changes as described above. Status post recent cholecystectomy with remaining nonenhancing focal collection in the gallbladder fossa with small air loculi. Recommend clinical correlation and follow-up. 2. Possible mild acute colitis versus underdistention. 3. Mild to moderate prostatomegaly with urinary bladder wall thickening, which may represent cystitis versus sequelae of chronic urinary bladder outflow obstruction. 4. New left lower lobe opacity may represent pneumonic infiltrate and new small left pleural effusion. Recommend clinical correlation and follow-up. 5. Other findings as described above. Report Electronically Signed By: Dhiraj Grady 07/11/2025 2:57:06 AM [EST]
[2025-07-11] MEDS: MethylPREDNISolone SOD SUCC 62.5 MG/ML 2ML VIAL 125 MG IVP (03:57)
[2025-07-11] MEDS: MORPHINE SULF INJ 4 MG/ML VIAL 6 MG IV (03:57)
[2025-07-11] MEDS: ALBUTEROL/IPRATROPIUM (Duoneb) RT SOL 3 ML NEBU INH (04:09)
[2025-07-11 04:10] VITALS: PULSE 87; RESP 14; O2SAT 98
[2025-07-11 05:50] VITALS: BP 133/71; PULSE 72; RESP 16; TEMP 36.8; O2SAT 98
== END 2025-07-11 05:59 | disposition home or self-care (01) ==
PROVIDERS: Emergency Provider Emergency Medicine; PCP Student in an Organized Health Care Education/Training Program
DX: J18.9 Pneumonia, unspecified organism (principal); K85.90 Acute pancreatitis without necrosis or infection, unspecified
CPT/HCPCS: 36415; 71045; 71275; 74177; 80053; 82150; 82248; 83605; 83690; 83735; 83880; 84145; 84443; 84484; 85025; 85379; 85652; 86140; 87040; 87400; 87811; 93005; 94640; 96361; 96365; 96366; 96375; 99284; A4649; A9270; J0692; J2270; J2405; J2919; J3373; J7030; J7050; J7999; Q9967

== ENCOUNTER → 2025-08-04 | Outpatient (CLI) | payer OTHER, SELFPAY ==
[2025-08-04 09:19] LABS: Basophils # (Auto) 0.0 Thou/mm3 (0.0-0.2); Basophils % (Auto) 0 % (0-2.5); Eosinophils # (Auto) 0.3 Thou/mm3 (0.0-0.5); Eosinophils % (Auto) 3 % (0-10); Hematocrit 39.1 % (41.0-53.0); Hemoglobin 12.6 g/dL (13.5-16.0); Immature Granulocytes Auto 0.06 Thou/mm3 (0.00-0.00); Lymphocytes # (Auto) 2.4 Thou/mm3 (1.0-4.8); Lymphocytes % (Auto) 25 % (10-50); Mean Corpuscular HGB Conc 32.2 g/dl (31.0-37.0); Mean Corpuscular Hemoglobin 30.9 pg (25.0-35.0); Mean Corpuscular Volume 96 fL (80-100); Monocytes # (Auto) 0.9 Thou/mm3 (0.0-0.8); Monocytes % (Auto) 9 % (0-12); Neutrophils # (Auto) 5.8 Thou/mm3 (1.8-7.7); Neutrophils % (Auto) 61 % (37-80); Nucleated Red Blood Cell # 0.00 Thou/mm3 (0.00-0.00); Nucleated Red Blood Cell % 0 /100 WBC (0); Platelet Count 174 Thou/mm3 (140-440); RDW Standard Deviation 49.6 fL (35.1-43.9); Red Blood Count 4.08 Miln/mm3 (4.50-5.90); White Blood Count 9.5 Thou/mm3 (3.8-10.6)
[2025-08-04 09:29] LABS: Alanine Aminotransferase 18 U/L (10-49); Albumin, Serum 3.9 gm/dL (3.4-4.8); Albumin/Globulin Ratio 1.8 (1.2-2.2); Alkaline Phosphatase 159 U/L (46-116); Anion Gap 8 (7-16); Aspartate Amino Transferase 18 U/L (0-34); BUN/Creatinine Ratio 13 Ratio (12-20); Bilirubin,Total 0.3 mg/dL (0.3-1.2); Blood Urea Nitrogen 13 mg/dL (9-23); Calcium 9.6 mg/dL (8.3-10.6); Calcium (Corrected) 9.7 mg/dL (8.5-10.1); Carbon Dioxide 25.8 mMol/L (20.0-31.0); Cardiac Risk Estimate 3.2 RATIO (4.0-6.7); Chloride 108 mMol/L (98-107); Cholesterol 165 mg/dL (132-200); Creatinine (Component) 1.0 mg/dL (0.6-1.3); Globulin 2.2 gm/dL (2.3-3.5); Glucose 133 mg/dL (74-106); HDL Cholesterol 51 mg/dL (40-60); LDL Cholesterol,Calculated 86 mg/dL (0-130); Lipase 71 U/L (12-53); Osmolality,Calculated 285 (275-295); Potassium 4.2 mMol/L (3.4-5.1); Sodium 142 mMol/L (136-145); Total Protein 6.1 gm/dL (5.7-8.2); Triglycerides 140 mg/dL (30-150); eGFR > 60 See Note
[2025-08-04 09:44] LABS: Glucose Estimated Average 169 mg/dL (80-131); Hemoglobin A1C 7.5 % Hgb (4.8-6.0)
== END | disposition home or self-care (01) ==
LOC: COPL 07:55
PROVIDERS: PCP Student in an Organized Health Care Education/Training Program; Referring Provider Student in an Organized Health Care Education/Training Program; Visit Provider Student in an Organized Health Care Education/Training Program
DX: K85.80 Other acute pancreatitis without necrosis or infection (principal); I10 Essential (primary) hypertension
CPT/HCPCS: 36415; 80053; 80061; 83036; 83690; 85025

== ENCOUNTER → 2025-08-05 | Outpatient (CLI) | payer OTHER, SELFPAY ==
[2025-08-05 15:13] LABS: Clostridium Difficile PCR Negative (Negative)
== END | disposition home or self-care (01) ==
LOC: SLDO 08:34
PROVIDERS: PCP Specialist; Referring Provider Specialist; Visit Provider Specialist
DX: R19.7 Diarrhea, unspecified (principal)
CPT/HCPCS: 87493